=== PATIENT | male | born 1950 | race Caucasian/White ===

== ENCOUNTER → 2016-03-19 | Outpatient (CLI) | payer OTHER ==
[~2016-03-19] MED LIST: /AMLO25TA PO; /GLIP10TAB PO; /PRAV20TA PO; /TAMS4CA PO; ACET50TA PO; ASPI325T5 PO; BACT800T5 PO; BACTDSTA PO; CINN500C9 PO; DOXAZOSIN PO; JANU100T PO; LIDOCAINE 2% MDV 20 ML VIAL As Ordered ONE; LIDOCAINE 4% CREAM 5GM (LMX4) As Ordered ONE; METF1000 PO; PERCOCET PO; PROSCAR PO; SODIUM TETRADECYL SULFATE(3%)30MG/ML 2ML VIAL (SOTRADECOL) As Ordered ONE; TYLE325T5 PO; ZEST20TA8 PO; aspirin OR
--- NOTE | 2016-03-19 17:49 | REPKIM ---
INDICATION: Patient with symptomatic left lower extremity varicose veins and other complications present for left lower extremity EVLT of the incompetent aaGSV and sclerotherapy of significant varicosities and incompetent perforators in the thigh and calf. Ultrasound reflux evaluation showed severe reflux in the anterior accessory greater saphenous vein. Duplex reflux study also showed significant varicosities associated with incompetent perforators with significant reflux at the medial mid thigh and mid calf level. Reflux of 5.2 seconds was observed in the anterior accessory greater saphenous vein. The aa GSV measures 7.5 mm in AP dimension with relatively straight segment to the proximal thigh which then gives off tributaries. Reflux greater than 0.5 seconds in induration is seen in the deep veins. Patient has failed conservative treatment; c/o persistent symptoms that are refractory more than a 3 month course of conservative therapy; utilization of compressive stockings and leg elevation. PROCEDURE: 1. Endovenous laser ablation therapy of the incompetent GSV on the left 2. Sclerotherapy of incompetent crew chief and varicosities in the mid to distal thigh on the left. 3. Sclerotherapy of the incompetent crew chief and varicosities in the mid calf level on the left. INTERVENTIONALIST: Maria Luz Molina MD EBL: 5 mL MEDICATIONS: Local Lidocaine and Sodium Tetradecyl Sulfate 3% diluted to 1.5% DEVICE USED: 25-CM VenaCure EVLT [facility] Lot#[id number] TECHNIQUE AND FINDINGS: Informed consent was obtained prior to the procedure. The patient was placed supine on the table. A time out was performed that verified correct procedure, site, side and materials available. Ultrasound examination was performed and focused on the saphenofemoral junction of the left leg. This confirmed significant reflux involving the anterior accessory greater saphenous vein as previously described. This also showed significant reflux involving the aaGSV with significant varicosities tributaries into the thigh. US also localized incompetent perforators and significant varicosities at the medial thigh and calf level. The left lower extremity was prepped and draped in the usual sterile fashion. After local anesthesia with 1mL of lidocaine 1% at the skin, the incompetent aa greater saphenous vein at the proximal thigh level was accessed with a 21 gauge needle and a 0.018" wire followed by a 4 Hungarian sheath of the EVLT kit. The sheath was advanced over the wire to the saphenofemoral junction level and the laser fiber was advanced coaxially and its tip was positioned approximately 3-4 cm distal from the saphenofemoral junction. Tumescent anesthesia was given along this vein by using real-time ultrasonographic guidance and a 22 gauge spinal needle and a mixture of diluted lidocaine (12.5mL @ 2% in 237.5mL of normal saline). Endovenous laser ablation was applied along the greater saphenous vein using 6 Kumar in continuous mode for a total duration of 22 seconds. A total of 131 Joules was delivered. Approximately 2 mL of sclerotherapy foam (1mL sodium tetradecyl sulfate diluted at 1.5 %) mixed with air at a ratio of 1:4 injected via the sheath to treat tributaries.. Significant varicosities/incompetent crew chief at the medial mid thigh level was then accessed with a micropuncture needle. A microcatheter was then placed over a guidewire. Approximately 2 mL of sclerotherapy foam (1mL sodium tetradecyl sulfate diluted at 1.5 %) mixed with air at a ratio of 1:4 injected. Compression was maintained at the crew chief to prevent non-target sclerosis. Significant tortuous varicosities associated with incompetent crew chief at the mid calf level was then accessed with a micropuncture needle. Approximately 2 mL of sclerotherapy foam (1mL sodium tetradecyl sulfate diluted at 1.5 %) mixed with air at a ratio of 1:4 injected. Compression was maintained at the crew chief to prevent non-target sclerosis. SteriStrips was applied on the skin, followed by 20-30 mm Hg compression stockings. The patient was then allowed to stand and instructed to walk for 15 minutes. He was then discharged back home in good and stable condition with no immediate complication. This procedure was performed with ultrasound guidance. Dr. Molina was present. IMPRESSION: 1. Left lower extremity symptomatic varicose veins and other complications. 2. Successful treatment of symptomatic incompetent aaGSV in the left lower extremity by endovenous laser ablation. 3. Significant varicosities associated with incompetent perforators in the medial thigh and mid calf level also treated with sclerotherapy as discussed above. PLAN: Pt was given post-procedure instructions, including contact information for a follow-up duplex ultrasound of the left lower extremity to rule out DVT and post EVLT/sclerotherapy evaluation in next several days. Patient will need compression stockings for long-term due to incompetent deep system. cc: Ruddy Dugan MD [facility]
== END | disposition home or self-care (01) ==
LOC: M IRPRO 08:15
DX: I83.812 Varicose veins of left lower extremity with pain (principal); I83.892 Varicose veins of left lower extremity with other complications
CPT/HCPCS: 36471; 36478; C1888; C1894

== ENCOUNTER → 2016-03-21 | Outpatient (CLI) | payer OTHER ==
[~2016-03-21] MED LIST changes: -LIDOCAINE 2% MDV 20 ML VIAL As Ordered ONE; -LIDOCAINE 4% CREAM 5GM (LMX4) As Ordered ONE; -SODIUM TETRADECYL SULFATE(3%)30MG/ML 2ML VIAL (SOTRADECOL) As Ordered ONE
--- NOTE | 2016-03-21 12:09 | REP ---
Left lower extremity deep vein duplex ultrasound: I note that the patient underwent and intravenous laser ablation therapy for an incompetent left greater saphenous vein on 03/19/2016. Deep vein duplex ultrasound performed from the left popliteal vein to the common femoral vein. The deep veins demonstrate normal compression, normal Doppler color flow and normal Doppler waveforms with respiration and augmentation at multiple levels. There is no evidence of deep vein thrombus. Thrombus is noted in multiple collateral veins, as expected, post Intravenous laser therapy. Signed by Lino Cohen MD 03/21/2016 12:01 P
== END ==
LOC: M RAD 10:49
DX: I83.009 Varicose veins of unspecified lower extremity with ulcer of unspecified site (principal)

== ENCOUNTER → 2016-05-16 | Outpatient (CLI) | payer OTHER ==
[2016-05-16 09:59] LABS: BASO % 0.9 % (0.0-1.0); EOS # 0.5 K/mm3 (0.0-0.50); EOS % 8.2 % (0.0-3.0); LARGE UNSTAINED CELL # 0.2 K/mm3 (0.0-0.4); LARGE UNSTAINED CELL % 2.4 % (0.0-4.0); LYMPH # 1.8 K/mm3 (1.5-4.5); LYMPH % 26.8 % (24.0-44.0); MEAN CORPUSCULAR HGB CONC 33.2 g/dl (32.0-36.5); MEAN CORPUSCULAR VOLUME 87.3 fl (80.0-96.0); MONO # 0.4 K/mm3 (0.0-0.8); MONO % 5.7 % (0.0-5.0); NEUTROPHILS # 3.5 K/mm3 (1.8-7.7); NEUTROPHILS % 56.1 % (36.0-66.0); PLATELET COUNT, AUTOMATED 194 k/mm3 (150-450); RED CELL DISTRIBUTION WIDTH 13.9 % (11.5-14.5); WHITE BLOOD COUNT 6.2 K/mm3 (4.0-10.0)
[2016-05-16 10:10] LABS: ALBUMIN 3.7 GM/DL (3.2-5.2); ALBUMIN/GLOBULIN RATIO 1.19 (1.00-1.93); ALKALINE PHOSPHATASE 48 U/L (45-117); ALT/SGPT 22 U/L (12-78); ANION GAP 6 MEQ/L (8-16); AST/SGOT 10 U/L (15-37); BILIRUBIN,TOTAL 0.6 MG/DL (0.2-1.0); BLOOD UREA NITROGEN 19 MG/DL (7-18); CALCIUM LEVEL 8.6 MG/DL (8.8-10.2); CARBON DIOXIDE LEVEL 31 MEQ/L (21-32); CHLORIDE LEVEL 108 MEQ/L (98-107); CHOLESTEROL LEVEL 167 MG/DL (<200); CREATININE FOR GFR 0.91 MG/DL (0.70-1.30); GLOMERULAR FILTRATION RATE > 60.0 (>49); GLUCOSE, FASTING 68 MG/DL (80-110); POTASSIUM SERUM 4.9 MEQ/L (3.5-5.1); SODIUM LEVEL 145 MEQ/L (136-145); TOTAL PROTEIN 6.8 GM/DL (6.4-8.2); TRIGLYCERIDES LEVEL 86 MG/DL (<150)
== END ==
LOC: M SMT 08:01
PROVIDERS: ATTEND Family Medicine
DX: E11.9 Type 2 diabetes mellitus without complications (principal)

== ENCOUNTER → 2016-06-05 | Outpatient (CLI) | payer OTHER | LOC: M SMT 08:50 | PROVIDERS: ATTEND Urology | DX: N40.0 Benign prostatic hyperplasia without lower urinary tract symptoms (principal); Z12.5 Encounter for screening for malignant neoplasm of prostate ==

== ENCOUNTER → 2017-06-04 | Outpatient (CLI) | payer OTHER, MEDICARE ==
[2017-06-04 13:47] LABS: BASO # 0.1 10^3/uL (0.0-0.2); BASO % 0.9 % (0.0-1.0); EOS # 0.4 10^3/uL (0.0-0.50); EOS % 6.6 % (0.0-3.0); HEMATOCRIT 51.1 % (42.0-52.0); IMMATURE GRANULOCYTE % 0.3 % (0-3.0); LYMPH # 1.6 10^3/uL (1.5-4.5); LYMPH % 23.7 % (24.0-44.0); MEAN CORPUSCULAR HEMOGLOBIN 27.4 pg (27.0-33.0); MEAN CORPUSCULAR HGB CONC 31.3 g/dl (32.0-36.5); MEAN CORPUSCULAR VOLUME 87.7 fl (80.0-96.0); MONO # 0.5 10^3/uL (0.0-0.8); NEUTROPHILS % 61.5 % (36.0-66.0); PLATELET COUNT, AUTOMATED 247 10^3/uL (150-450); RED BLOOD COUNT 5.83 10^6/uL (4.30-6.10); RED CELL DISTRIBUTION WIDTH 15.8 % (11.5-14.5); WHITE BLOOD COUNT 6.5 10^3/uL (4.0-10.0)
[2017-06-04 14:01] LABS: ALBUMIN 3.9 GM/DL (3.2-5.2); ALBUMIN/GLOBULIN RATIO 0.98 (1.00-1.93); ALKALINE PHOSPHATASE 50 U/L (45-117); ALT/SGPT 26 U/L (12-78); ANION GAP 4 MEQ/L (8-16); AST/SGOT 13 U/L (7-37); BILIRUBIN,TOTAL 0.8 MG/DL (0.2-1.0); BLOOD UREA NITROGEN 22 MG/DL (7-18); CALCIUM LEVEL 9.3 MG/DL (8.8-10.2); CARBON DIOXIDE LEVEL 31 MEQ/L (21-32); CHLORIDE LEVEL 106 MEQ/L (98-107); CHOLESTEROL LEVEL 191 MG/DL (<200); CHOLESTEROL RISK RATIO 4.441 (<5); CREATININE FOR GFR 0.95 MG/DL (0.70-1.30); GLOMERULAR FILTRATION RATE > 60.0 (>49); GLUCOSE, FASTING 109 MG/DL (70-100); HDL CHOLESTEROL 43 MG/DL (>40); LDL CHOLESTEROL 124.4 MG/DL (<100); NON-HDL-C 148 MG/DL; SODIUM LEVEL 141 MEQ/L (136-145); TOTAL PROTEIN 7.9 GM/DL (6.4-8.2); TRIGLYCERIDES LEVEL 118 MG/DL (<150)
[2017-06-04 14:06] LABS: POTASSIUM SERUM 5.6 MEQ/L (3.5-5.1)
[2017-06-04 14:26] LABS: CREATININE, URINE 80.6 MG/DL
[2017-06-04 14:56] LABS: ESTIMATED AVERAGE GLUCOSE 146 MG/DL (60-110); HEMOGLOBIN A1c 6.7 %
== END ==
LOC: M SMT 08:36
DX: E11.9 Type 2 diabetes mellitus without complications (principal)
CPT/HCPCS: 80053

== ENCOUNTER → 2017-06-19 | Outpatient (CLI) | payer OTHER, MEDICARE | LOC: M RAD 09:37 | DX: Z12.2 Encounter for screening for malignant neoplasm of respiratory organs (principal); Z87.891 Personal history of nicotine dependence | CPT/HCPCS: G0297 ==

== ENCOUNTER 2017-09-07 09:41 | Day surgery (SDC) | payer OTHER ==
[2017-09-07] MEDS: NS 1,000 ML IV (10:39)
[2017-09-07] MEDS ORDERED: LIDOCAINE 2% INJ 100 MG/5 ML SDV (FOR ANES.) As Ordered (11:51)
[2017-09-07] MEDS ORDERED: PROPOFOL 500 MG/50 ML VIAL As Ordered (11:51)
== END 2017-09-07 12:31 | disposition home or self-care (01) ==
LOC: M OPP 09:41
DX: Z12.11 Encounter for screening for malignant neoplasm of colon (principal); D12.5 Benign neoplasm of sigmoid colon; K64.0 First degree hemorrhoids; K57.30 Diverticulosis of large intestine without perforation or abscess without bleeding; I10 Essential (primary) hypertension; Z95.5 Presence of coronary angioplasty implant and graft; I25.2 Old myocardial infarction; E78.5 Hyperlipidemia, unspecified; E11.9 Type 2 diabetes mellitus without complications; N40.1 Benign prostatic hyperplasia with lower urinary tract symptoms; Z87.891 Personal history of nicotine dependence; Z88.0 Allergy status to penicillin; Z88.1 Allergy status to other antibiotic agents; Z88.3 Allergy status to other anti-infective agents; Z79.82 Long term (current) use of aspirin; Z79.84 Long term (current) use of oral hypoglycemic drugs; Z79.899 Other long term (current) drug therapy
CPT/HCPCS: 45385

== ENCOUNTER → 2018-12-08 | Outpatient (CLI) | payer OTHER ==
[~2018-12-08] MED LIST changes: -/AMLO25TA PO; -/PRAV20TA PO; -/TAMS4CA PO; -ACET50TA PO; +ASPI81TA26 PO; -BACTDSTA PO; +FLOM0.4C39 PO; +INVO100T; +MAPA500T17 PO; +NORV2TAB PO; +OXYC1TAB23 PO; -PERCOCET PO; +PRAV1TAB39 PO; +SULF1TAB23 PO
[2018-12-08 11:08] LABS: ALT/SGPT 26 U/L (12-78); BILIRUBIN,TOTAL 0.9 MG/DL (0.2-1.0); BLOOD UREA NITROGEN 24 MG/DL (7-18); CALCIUM LEVEL 8.9 MG/DL (8.8-10.2); CARBON DIOXIDE LEVEL 33 MEQ/L (21-32); CHLORIDE LEVEL 104 MEQ/L (98-107); CHOLESTEROL LEVEL 196 MG/DL (<200); CHOLESTEROL RISK RATIO 5.025 (<5); CREATININE FOR GFR 0.99 MG/DL (0.70-1.30); GLOMERULAR FILTRATION RATE > 60.0 (>49); GLUCOSE, FASTING 144 MG/DL (70-100); HDL CHOLESTEROL 39 MG/DL (>40); LDL CHOLESTEROL 129 MG/DL (<100); NON-HDL-C 157 MG/DL; POTASSIUM SERUM 4.7 MEQ/L (3.5-5.1); PROSTATIC SPECIFIC AG MONITOR 2.72 NG/ML (< 4.00); SODIUM LEVEL 141 MEQ/L (136-145); TOTAL PROTEIN 7.6 GM/DL (6.4-8.2); TRIGLYCERIDES LEVEL 142 MG/DL (<150)
[2018-12-08 11:14] LABS: CREATININE, URINE 85.3 MG/DL; HEMATOCRIT 52.3 % (42.0-52.0); HEMOGLOBIN 16.2 g/dl (13.5-17.5); MALB URINE SIEMENS 72.6 MG/L; MAU/CREAT RATIO 85.1 MCG/MG (0.0-30.0); MEAN CORPUSCULAR HEMOGLOBIN 27.9 pg (27.0-33.0); MEAN CORPUSCULAR VOLUME 90.2 fl (80.0-96.0); PLATELET COUNT, AUTOMATED 199 10^3/uL (150-450); WHITE BLOOD COUNT 6.2 10^3/uL (4.0-10.0)
== END ==
LOC: M SMT 08:14
PROVIDERS: ATTEND Family Medicine
DX: E11.9 Type 2 diabetes mellitus without complications (principal); N40.1 Benign prostatic hyperplasia with lower urinary tract symptoms

== ENCOUNTER → 2018-12-21 | Outpatient (CLI) | payer OTHER ==
--- NOTE | 2018-12-22 04:55 | REP ---
Clinical: Lung screening. History smoking. Comparison: 06/19/2017 the the the the Technique: Axial low-dose noncontrast images from the thoracic inlet to the upper abdomen using lung screening technique. Findings: The lung diaz are well-aerated. Minimal chronic scarring primarily noted at the lingula and right base again identified. No consolidation, significant nodule or mass lesion is appreciated. No pleural effusion/reaction or pneumothorax. Tracheobronchial tree is patent. Mediastinum demonstrates atherosclerotic changes of the coronary arteries without cardiomegaly. Impression: Lung-RADS category I. No nodule or suspicious abnormality. Management recommendations include annual low-dose CT evaluation. Electronically Signed by Jacob Mulligan MD 12/22/2018 04:46 A
== END ==
LOC: M RAD 07:59
PROVIDERS: ATTEND Family Medicine
DX: Z12.2 Encounter for screening for malignant neoplasm of respiratory organs (principal); Z87.891 Personal history of nicotine dependence

== ENCOUNTER → 2019-11-17 | Outpatient (CLI) | payer OTHER ==
[2019-11-17 11:08] LABS: HEMATOCRIT 55.4 % (42.0-52.0); HEMOGLOBIN 17.2 g/dl (13.5-17.5); MEAN CORPUSCULAR HEMOGLOBIN 28.2 pg (27.0-33.0); MEAN CORPUSCULAR VOLUME 90.7 fl (80.0-96.0); PLATELET COUNT, AUTOMATED 210 10^3/uL (150-450); RED BLOOD COUNT 6.11 10^6/uL (4.30-6.10); WHITE BLOOD COUNT 7.6 10^3/uL (4.0-10.0)
[2019-11-17 11:46] LABS: ALBUMIN 3.8 GM/DL (3.2-5.2); ALT/SGPT 27 U/L (12-78); BILIRUBIN,TOTAL 1.1 MG/DL (0.2-1.0); BLOOD UREA NITROGEN 20 MG/DL (7-18); CALCIUM LEVEL 8.9 MG/DL (8.8-10.2); CARBON DIOXIDE LEVEL 34 MEQ/L (21-32); CHLORIDE LEVEL 102 MEQ/L (98-107); CREATININE FOR GFR 0.94 MG/DL (0.70-1.30); GLOMERULAR FILTRATION RATE > 60.0 (>42); GLUCOSE, FASTING 131 MG/DL (70-100); POTASSIUM SERUM 4.5 MEQ/L (3.5-5.1); SODIUM LEVEL 139 MEQ/L (136-145); TOTAL PROTEIN 7.3 GM/DL (6.4-8.2)
[2019-11-17 12:07] LABS: MAU/CREAT RATIO 553.3 MCG/MG (0.0-30.0)
[2019-11-17 12:35] LABS: HEMOGLOBIN A1c 7.2 %
== END ==
LOC: M PLALAB 08:28
PROVIDERS: ATTEND Family Medicine
DX: E11.9 Type 2 diabetes mellitus without complications (principal); N40.1 Benign prostatic hyperplasia with lower urinary tract symptoms; Z79.84 Long term (current) use of oral hypoglycemic drugs
CPT/HCPCS: 36415; 80053; 82043; 83036; 85027; G0103

== ENCOUNTER → 2019-12-23 | Outpatient (CLI) | payer OTHER ==
--- NOTE | 2019-12-23 08:53 | REP ---
INDICATION: ENCOUNTER FOR SCREENING FOR MALIGNANT NEOPLASM OF RESP ORGAN. COMPARISON: 12/21/2018, 06/19/2017 TECHNIQUE: Low-dose lung screening CT protocol FINDINGS: Of the lung diaz are well inflated. In the posterolateral aspect of the right upper lobe there is now a 17 x 9.5 mm nodule with lobulated irregular margins. No associated calcifications. There is a 6 mm semi solid nodule image 46 anteriorly in the right upper lobe just above the minor fissure. Some curvilinear subsegmental atelectatic changes are noted in the inferior lingular segment at the anterior left lung base unchanged. Left lower lobe and remainder of the upper lobe were unremarkable. Heart is not grossly enlarged. The aorta is calcified at the arch without aneurysm. There are mediastinal nodes in the 7-8 mm range in the precarinal and AP window region, not definitely pathologic by CT size criteria. IMPRESSION: Lung-RADS category 4B suspicious, suspicious findings for which additional diagnostic testing and/or tissue sampling recommended. I recommend a CT with contrast to be performed as a next step. Malignancy may reasonably be suspected but further evaluation certainly needed. <Electronically signed by Marvin Zhu > 12/23/19 0849
== END ==
LOC: M RAD 07:14
PROVIDERS: ATTEND Family Medicine
DX: Z12.2 Encounter for screening for malignant neoplasm of respiratory organs (principal); Z87.891 Personal history of nicotine dependence; R91.8 Other nonspecific abnormal finding of lung field; J98.11 Atelectasis; I70.0 Atherosclerosis of aorta

== ENCOUNTER → 2019-12-29 | Outpatient (CLI) | payer OTHER ==
[~2019-12-29] MED LIST changes: +ISOVUE-370 76% 100ML VIAL As Ordered ONE
--- NOTE | 2019-12-29 10:06 | REP ---
INDICATION: NEOPLASM OF UNCERTAIN BEHAVIOR COMPARISON: 12/23/2019 through 06/19/2017 TECHNIQUE: Axial contrast enhanced images from the thoracic inlet to the upper abdomen with coronal and sagittal reformations using 75 ml Isovue 370 intravenous contrast material. This CT examination was performed using the following dose reduction techniques: Automated exposure control, adjustment of mA and/or kv according to the patient's size, and use of iterative reconstruction technique. FINDINGS: 15 x 9 mm nodular lesion in the posterolateral right upper lobe is consistent with the new finding on 12/23/2019. 6 mm semi-solid nodular density just above the minor fissure (image 47) is again noted and similar to prior examinations. Chronic interstitial changes and minimal scarring noted throughout the bilateral lung diaz. No effusion. Tracheobronchial tree is patent. Mediastinal and right hilar lymph nodes measure up to approximately 12 mm short axis diameter. Atherosclerotic changes to the thoracic aorta and coronary arteries noted without aortic aneurysm/dissection or cardiomegaly. No pericardial effusion. Surrounding musculoskeletal structures are intact. Limited upper abdomen demonstrates normal bilateral adrenal glands. IMPRESSION: 1. The 15 x 9 mm nodular lesion identified in the posterior right upper lobe consistent with the recent finding on 12/23/2019. PET-CT and/or biopsy should be considered for further investigation. 2. 6 mm semi-solid nodular density in the right upper lobe just above the minor fissure is relatively similar to prior examinations. <Electronically signed by Jacob Mulligan > 12/29/19 9435
== END ==
LOC: M RAD 08:34
PROVIDERS: ATTEND Family Medicine
DX: D38.1 Neoplasm of uncertain behavior of trachea, bronchus and lung (principal)
CPT/HCPCS: 71260; Q9967

== ENCOUNTER → 2020-01-31 | Outpatient (CLI) | payer OTHER ==
[~2020-01-31] MED LIST changes: -ISOVUE-370 76% 100ML VIAL As Ordered ONE
--- NOTE | 2020-02-03 10:38 | REP ---
INDICATION: FIAGNOSING LUNG NODULE R91.1. Solitary pulmonary nodule. COMPARISON: Comparison CT study of the chest December 29, 2019.. TECHNIQUE: Approximately 45 minutes following the intravenous injection of a 8.62 mCi dose of F-18 FDG, three-dimensional PET scintigraphy is acquired from the skull base to the proximal thighs. Triplanar noncontrast CT scanning is acquired through the same anatomic range for attenuation correction, and image registration with scan parameters optimized to minimize radiation exposure to the patient. PET scintigraphy and CT datasets were fused and displayed on a workstation with multiplanar and projection display capability. FINDINGS: There is visible FDG uptake within the spiculated nodule in the right upper lobe. However, it is not in the hypermetabolic range. Maximum standard uptake value is 2.13. There is no abnormal hilar or mediastinal jody uptake in the chest. The anterior segment right upper lobe 6 mm nodule seen on recent CT study is again noted. There is no visible FDG accumulation within this small nodular area. No other abnormal hypermetabolic uptake is seen within the chest. Head and neck soft tissues are unremarkable. In the abdomen and pelvis, there is normal distribution of FDG to the liver, spleen, gastrointestinal, and genitourinary tract systems. No abnormal hypermetabolic uptake is seen in the abdomen or pelvis. Scan is otherwise unremarkable. IMPRESSION: There is discernible although non hypermetabolic uptake in the suspicious spiculated nodule in the right upper lobe. Low-grade malignancy is not excluded. No other abnormal hypermetabolic uptake is seen. There is no visible uptake in the 2nd right upper lobe nodule. <Electronically signed by Rogelio Feliciano > 02/03/20 1037
== END ==
LOC: M PLARAD 07:34
PROVIDERS: ATTEND Internal Medicine Pulmonary Disease
DX: R91.1 Solitary pulmonary nodule (principal)

== ENCOUNTER → 2020-03-19 | Outpatient (CLI) | payer OTHER ==
--- NOTE | 2020-03-19 13:12 | REP ---
INDICATION: SOB COMPARISON: 02/25/2012 TECHNIQUE: PA and lateral. FINDINGS: Mediastinum and cardiac silhouette are normal. Lung diaz demonstrate mild pulmonary vascular congestion along with bibasilar atelectasis and small pleural effusions. No pneumothorax. Skeletal structures are intact. IMPRESSION: Findings suggesting early CHF/pulmonary edema including bibasilar atelectasis and small pleural effusions. Correlation and follow-up recommended. <Electronically signed by Jacob Mulligan > 03/19/20 7584
[2020-03-19 16:38] LABS: BASO % 0.6 % (0.0-1.0); EOS # 0.1 10^3/uL (0.0-0.5); EOS % 1.6 % (0.0-3.0); HEMATOCRIT 52.5 % (42.0-52.0); HEMOGLOBIN 15.6 g/dl (13.5-17.5); LYMPH # 0.9 10^3/uL (1.5-5.0); LYMPH % 12.5 % (24.0-44.0); MEAN CORPUSCULAR HEMOGLOBIN 27.5 pg (27.0-33.0); MEAN CORPUSCULAR HGB CONC 29.7 g/dl (32.0-36.5); MEAN CORPUSCULAR VOLUME 92.6 fl (80.0-96.0); MONO # 0.5 10^3/uL (0.0-0.8); MONO % 7.2 % (0.0-5.0); NEUTROPHILS # 5.4 10^3/uL (1.5-8.5); NEUTROPHILS % 77.8 % (36.0-66.0); PLATELET COUNT, AUTOMATED 230 10^3/uL (150-450); RED BLOOD COUNT 5.67 10^6/uL (4.30-6.10)
[2020-03-19 17:08] LABS: ALBUMIN 3.8 GM/DL (3.2-5.2); ALT/SGPT 51 U/L (12-78); BILIRUBIN,TOTAL 1.7 MG/DL (0.2-1.0); BLOOD UREA NITROGEN 23 MG/DL (7-18); CALCIUM LEVEL 9.3 MG/DL (8.8-10.2); CARBON DIOXIDE LEVEL 28 MEQ/L (21-32); CHLORIDE LEVEL 102 MEQ/L (98-107); CREATININE FOR GFR 1.11 MG/DL (0.70-1.30); GLOMERULAR FILTRATION RATE > 60.0 (>42); GLUCOSE, FASTING 144 MG/DL (70-100); POTASSIUM SERUM 5.1 MEQ/L (3.5-5.1); SODIUM LEVEL 139 MEQ/L (136-145); TOTAL PROTEIN 7.1 GM/DL (6.4-8.2)
== END ==
LOC: M WUC 11:19
PROVIDERS: ATTEND Family Medicine
DX: R91.8 Other nonspecific abnormal finding of lung field (principal); R53.1 Weakness; R06.02 Shortness of breath

== ENCOUNTER 2020-03-22 10:23 | Emergency (ER) | payer OTHER ==
[~2020-03-22] VITALS: Ht 177.8 cm; Wt 83.6 kg
--- OUTSIDE RECORDS SUMMARY | 2020-03-22 10:38 | CCD | Continuity of Care Document ---
Author Author Jan MYLES MD Organization Unknown Address [address] [place] [address] Phone [phone] Care Team Providers Care Road Grader Operator Name Role Phone Ruddy Dugan M.D. AUTM [phone] AUTM Unavailable Leonor Ordonez M.D. AUTM [phone] Problems Description No Information Available Social History Type Date Description Comments Sex Unknown Tobacco Use Start: Unknown End: Former Cigarette Sm oker 2 Packs Daily Smoking Status Reviewed: 01/12/20 Former Cigarette Smoker 2 Pac ks Daily Tobacco Use Start: Unknown End: Unknown Patient is a former smoker Allergies, Adverse Reactions, Alerts Active Allergies Reaction Severity Comments Date Cipro 01/12/2020 Medications Active Medications SIG Qnty Indications Ordering Provide r Date Anoro Ellipta 62.5-25mcg/Inh Aeros ol 1 puff every day 180units Wisam Myles MD 01/12/2020 Arnuity Ellipta 200mcg/Act Aerosol 1 puff every day 90units Wisam Myles MD 01/12/2020 Ventolin HFA 108(90Base) mcg/Act A erosol 2 puffs qid/prn 18gm Wisam Myles MD 01/12/2020 Amlodipine Besylate 5mg Tablets 1 by mouth every day Unknown Invokana 100mg Tablets every day Unknown Glipizide 10mg Tablets 1 tab by mouth twice a day Unknown Metformin HCL 1000mg Tablets 1 tab by mouth twice a day Unknown Pravastatin Sodium 20mg Tablets 1 tab by mouth every day Unknown Immunizations Description No Information Available Vital Signs Date Vital Result Comment 01/12/2020 10:02am BP Systolic 142 mmHg BP Diastolic 80 mmHg Heart Rate 72 /min O2 % BldC Oximetry 90 % Height 70 inches 5'10" Weight 192.00 lb BMI (Body Mass Index) 27.5 kg/m2 [place] Body Weight 166 lb Weight 87.091 kg BSA (Body Surface Area) 2.05 m2 Results Test Acquired Date Facility Test Result H/L Range Note FVL/[place] 01/12/2020 [facility] SEE IMAGE FVC-Pred 4.43 L FVC-Pre 2.19 L FVC-%Pred-Pre 49 L FVC-LLN 3.49 L Fev1-Pred 3.26 L Fev1-Pre 1.23 L Fev1-%Pred-Pre 37 L Fev1-LLN 2.47 L Fev6-Pred 4.18 L Fev6-Pre 2.13 L Fev6-%Pred-Pre 51 L Fev6-LLN 3.27 L Wyt6upn-Goez 74 % Kon4wdm-Mgy 56 % Myh8yob-%Pred-Pre 76 % Arg2goa-HVW 64 % Vdz3yit-Abmr 94 % Kub5gzs-Isf 97 % Wlt1vdg-%Pred-Pre 103 % FEFMax-Pred 8.36 L/E/sec FEFMax-Pre 3.28 L/E/sec FEFMax-%Pred-Pre 39 L/E/sec FEFMax-LLN 6.04 L/E/sec Krx8639-Xgbc 2.47 L/E/sec Uge0461-Kqu 0.53 L/E/sec Mnm9282-%Pred-Pre 21 L/E/sec Mcb7932-RMJ 0.87 L/E/sec ExpTime-Pre 6.99 sec Non0qkj4-Owik 78 % Bfi9mhy4-Ond 58 % Jbq8qjl5-%Pred-Pre 74 % Ish4mdk3-SGN 69 % Procedures Date Code Description Status 01/26/2020 76457 Diffusing Capacity Completed 01/26/2020 02439 Plethysmography Determination Sariah ng Volumes & Per Airway Resist Completed 01/26/2020 42332 Maximum Breathing Capacity, Maxi mal Voluntary Ventilation Completed 01/26/2020 53099 Bronchospasm Evaluation Complete d 01/12/2020 64681 Aerosol Or Vapor Inhalations Com pleted 01/12/2020 66485 Spirometry Completed Medical Devices Description No Information Available Encounters Type Date Location Provider Dx Diagnosis Office Visit 01/12/2020 10:00a [facility] Jah Myles MD R91.1 Solitary pulmonary nodule J44.9 Chronic obstructive pulmonar y disease, unspecified Z87.891 Personal history of nicotine dependence Assessments Date Code Description Provider 01/26/2020 R91.1 Solitary pulmonary nodule [facility] 01/12/2020 R91.1 Solitary pulmonary nodule Kristy Myles MD 01/12/2020 J44.9 Chronic obstructive pulmonary di sease, unspecified Wisam Myles MD 01/12/2020 Z87.891 Personal history of nicotine dep endence Wisam Myles MD Plan of Treatment 01/12/2020 - Wisam Myles MD* R91.1 Solitary pulmonary nodule * J44.9 Chronic obstructive pulmonary disease, unspecified * Z87.891 Personal history of nicotine dependence * * New Xrays:* PET CT Skull base to mid thigh, Scheduled: 01/31/20 * Referral:* Leonor Ordonez M.D., Cardiology/Phys/Osteo * Comments:* ~ At t his point, he has an enlarging right upper lobe nodule in a patient with long-standing tobacco use and significant underlying obstructive lung disease. I have spoken at length with Dr. Wilkerson from thoracic surgery, and I believe the best approach really would be operative intervention, if he is able to tolerate it. ~ I reviewed with them the fact that he has significant underlying obstructive lung disease and, currently, his FEV1 is only 1.24L, which would not tolerate a lobectomy. However, he is not on any respiratory medications, and exam today suggests an exacerbation of his underlying lung disease. We will, therefore, start him on Anoro and Arnuity. I will see him in several weeks with the PFT's. We will, also, schedule a PET scan for his nodule.~ He clearly will need cardiology clearance as well, as he has stents in place, and has not been evaluated from that standpoint in some time. ~ I have spoken with Dr. Wilkerson in this regard, and he is in agreement. I will make all those above arrangements. ~ I will see him in return with the above. * Follow up:* PFTs in 2 weeks.....see me with Functional Status Description No Information Available Mental Status Description No Information Available Referrals Refer to Reason for Referral Status Appt Date Radiology/Procedure [facility] approved [id number] Created Leonor Ordonez M.D. Lung mass needs resection....known CAD with stents Created 03/07/2020 [facility], [address] [place] [address] [phone]
--- OUTSIDE RECORDS SUMMARY | 2020-03-22 10:38 | CCD | Continuity of Care Document ---
Author Author Jna NAVARRO M.D. Organization Unknown Address [address] [place] [address] Phone [phone] Care Team Providers Care Box Feeder Name Role Phone Ruddy Dugan M.D. AUTM [phone] AUTM Unavailable Leonor Ordonez M.D. AUTM [phone] Problems Active Problems Provider Date Type 2 diabetes mellitus Hipolito Navarro M.D. Onset: 021 Social History Type Date Description Comments Sex Unknown Tobacco Use Start: Unknown End: Former Cigarette Sm oker 2 Packs Daily Tobacco Use Start: Unknown End: Unknown Patient is a former smoker Smoking Status Reviewed: 02/20/20 Patient is a former smoker Allergies, Adverse [...] Available Vital Signs Date Vital Result Comment 02/20/2020 9:41am BP Systolic 140 mmHg BP Diastolic 70 mmHg Heart Rate 94 /min O2 % BldC Oximetry 90 % Height 70 inches 5'10" Weight 191.00 lb BMI (Body Mass Index) 27.4 kg/m2 [place] Body Weight 166 lb Weight 86.638 kg BSA (Body Surface Area) 2.05 m2 02/02/2020 9:16am BP Systolic 140 mmHg BP Diastolic 62 mmHg Heart Rate 89 /min O2 % BldC Oximetry 91 % Body Temperature 96.0 F Height 70 inches 5'10" Weight 190.00 lb BMI (Body Mass Index) 27.3 kg/m2 [place] Body Weight 166 lb Weight 86.184 kg BSA (Body Surface Area) 2.04 m2 Results Test Acquired Date Facility Test Result H/L Range Note FVL/[place] 01/12/2020 [facility] SEE IMAGE FVC-Pred 4.43 L FVC-Pre 2.19 L FVC-%Pred-Pre 49 L FVC-LLN 3.49 L Fev1-Pred 3.26 L Fev1-Pre 1.23 L Fev1-%Pred-Pre 37 L Fev1-LLN 2.47 L Fev6-Pred 4.18 L Fev6-Pre 2.13 L Fev6-%Pred-Pre 51 L Fev6-LLN 3.27 L Wim5uhj-Wqzh 74 % Ber2zss-Ibf 56 % Oay1ggh-%Pred-Pre 76 % Cpj8uyk-SGS 64 % Gim6nxi-Gtwd 94 % Lek2awr-Rlo 97 % Vmn6lps-%Pred-Pre 103 % FEFMax-Pred 8.36 L/E/sec FEFMax-Pre 3.28 L/E/sec FEFMax-%Pred-Pre 39 L/E/sec FEFMax-LLN 6.04 L/E/sec Zcg9134-Jmse 2.47 L/E/sec Ugb5676-Qnw 0.53 L/E/sec Tjq1900-%Pred-Pre 21 L/E/sec Wwp5790-BZI 0.87 L/E/sec ExpTime-Pre 6.99 sec Imq8vrf0-Ioty 78 % Mut3rmd9-Gub 58 % Iup2xym9-%Pred-Pre 74 % Sev7ivw5-YKI 69 % Procedures Date Code Description Status 01/26/2020 80677 Diffusing Capacity Completed 01/26/2020 26448 Plethysmography Determination Sariah ng Volumes & Per Airway Resist Completed 01/26/2020 11180 Maximum Breathing Capacity, Maxi mal Voluntary Ventilation Completed 01/26/2020 03712 Bronchospasm Evaluation Complete d 01/12/2020 65372 Inhaler Teaching Completed 01/12/2020 24691 Spirometry Completed Medical Devices Description No Information Available Encounters Type Date Location Provider Dx Diagnosis Office Visit 02/02/2020 9:30a [facility] Jah Myles MD R91.1 Solitary pulmonary nodule J44.9 Chronic obstructive pulmonar y disease, unspecified Z87.891 Personal history of nicotine dependence Office Visit 01/12/2020 10:00a [facility] Jah Myles MD R91.1 Solitary pulmonary nodule J44.9 Chronic obstructive pulmonar y disease, unspecified Z87.891 Personal history of nicotine dependence Assessments Date Code Description Provider 02/20/2020 R91.1 Solitary pulmonary nodule Hipolito Navarro M.D. 02/20/2020 J44.9 Chronic obstructive pulmonary di sease, unspecified Hipolito Navarro M.D. 02/20/2020 Z87.891 Personal history of nicotine dep jeradence Hipolito Navarro M.D. 02/20/2020 E11.21 Type 2 diabetes mellitus Hipolito Navarro M.D. 02/20/2020 I10 Essential hypertension Hipolito shukla M.D. 02/20/2020 Z95.5 History of placement of stent fo r coronary artery disease Hipolito Navarro M.D. 02/20/2020 R91.8 Other nonspecific abnormal findi ng of lung field Hipolito Navarro M.D. 02/02/2020 R91.1 Solitary pulmonary nodule Kristy Myles MD 02/02/2020 J44.9 Chronic obstructive pulmonary di sease, unspecified Wisam Myles MD 02/02/2020 Z87.891 Personal history of nicotine dep endence Wisam Myles MD 01/26/2020 R91.1 Solitary pulmonary nodule [facility] 01/12/2020 R91.1 Solitary pulmonary nodule Kristy Myles MD 01/12/2020 J44.9 Chronic obstructive pulmonary di sease, unspecified Wisam Myles MD 01/12/2020 Z87.891 Personal history of nicotine dep endence Wisam Myles MD Plan of Treatment Future Appointment(s):* 06/04/2020 3:15 pm - Wisam Myles MD at [facility]Th[facility]acic 02/20/2020 - Hipolito Navarro M.D.* R91.1 Solitary pulmonary nodule* New Orders: * Thoracoscopy,possible thoracotomy, wedge resection bronch, Ordered: 02/20/20 * Referral:* Leonor Ordonez M.D., Cardiology/Phys/Osteo * Follow up:* Follow up will be scheduled upon discharge from the hospital post operatively. * J44.9 Chronic obstructive pulmonary disease, unspecified * Z87.891 Personal history of nicotine dependence * E11.21 Type 2 diabetes mellitus * I10 Essential hypertension * Z95.5 History of placement of stent for coronary artery disease * R91.8 Other nonspecific abnormal finding of lung field* New Orders:* Thoracoscopy,possible thoracotomy, wedge resection bronch, Ordered: 02/20/20 Functional Status Description No Information Available Mental Status Description No Information Available Referrals Refer to Reason for Referral Status Appt Date Leonor Ordonez M.D. cardiac clearance, known CAD with stents. Planned lobectomy right upper lobe Created [facility], [place] [facility], [address] [id number] [phone] Hipolito Navarro M.D. Resect RUL nodule as we had previously discussed Scheduled 02/20/2020 [facility] [id number] [place] [id number] [phone] Radiology/Procedure [facility] approved [id number] Closed Leonor Ordonez M.D. Lung mass needs resection....known CAD with stents Created 03/07/2020 [facility], [address] [facility] [employer], [address] [id number] [phone]
--- OUTSIDE RECORDS SUMMARY | 2020-03-22 10:38 | CCD | Continuity of Care Document ---
Author Author [facility] Organization Unknown Address [address] [place] [address] Phone [phone] Care Team Providers Care Electronics System Mechanic Name Role Phone Ruddy Dugan M.D. AUTM [phone] AUTM Unavailable Leonor Ordonez M.D. AUTM [phone] Problems Description No Information Available Social History [...] lb BMI (Body Mass Index) 27.5 kg/m2 [place] Body Weight 166 lb Weight 87.091 kg [...] L Fev6-%Pred-Pre 51 L Fev6-LLN 3.27 L Xbk9mij-Udms 74 % Kjq5kts-Rvw 56 % Eez4fmx-%Pred-Pre 76 % Ebm5zju-GGD 64 % Che6blg-Qjho 94 % Rxd9awj-Esu 97 % Uyg0dnx-%Pred-Pre 103 % FEFMax-Pred 8.36 L/E/sec FEFMax-Pre 3.28 L/E/sec FEFMax-%Pred-Pre 39 L/E/sec FEFMax-LLN 6.04 L/E/sec Emy6142-Ioxx 2.47 L/E/sec Awl3567-Zhb 0.53 L/E/sec Fsi6145-%Pred-Pre 21 L/E/sec Sqe4241-ZGV 0.87 L/E/sec ExpTime-Pre 6.99 sec Blb0bwg8-Rhfi 78 % Nwf3naj1-Gtq 58 % Fjd9bib0-%Pred-Pre 74 % Bnr6trs0-NYH 69 % Procedures Date Code Description Status 01/12/2020 35229 Aerosol Or Vapor Inhalations Com pleted 01/12/2020 33557 Spirometry Completed Medical Devices Description No Information Available Encounters Type Date Location Provider Dx Diagnosis Office Visit 01/12/2020 10:00a [facility] Lawrevelyn Myles MD R91.1 Solitary pulmonary nodule J44.9 Chronic obstructive pulmonar y disease, unspecified Z87.891 Personal history of nicotine dependence Assessments Date Code Description Provider 01/26/2020 R91.1 Solitary pulmonary nodule [facility] 01/12/2020 R91.1 Solitary pulmonary nodule Kristy elvin Myles MD 01/12/2020 J44.9 Chronic obstructive pulmonary di sease, unspecified Wisam Myles MD 01/12/2020 Z87.891 Personal history of nicotine dep endence Wisam Myles MD Plan of Treatment Future Appointment(s):* 02/02/2020 9:30 am - Wisam Myles MD at [facility] Pulmonary/Thoracic 01/12/2020 - Wisam Myles MD* R91.1 Solitary [...] Description No Information Available Referrals Refer to Dr Reason for Referral Status Appt Date Radiology/Procedure [facility] approved [id number] [facility] 00 Slezka, Vojtech, M.D. Lung mass needs resection....known CAD with stents Created 03/07/2020 [facility], [facility] [facility], [place] [address] [phone]
--- OUTSIDE RECORDS SUMMARY | 2020-03-22 10:39 | CCD ---
Author Author [facility] Organization [facility] Address Unknown Phone Unavailable Care Team Providers Care Food Products Tester Name Role Phone Drew Myles MD Unavailable Unavailable Drew Myles MD Unavailable Unavailable Drew Myles MD Unavailable Unavailable Drew Myles MD Unavailable Unavailable Drew Myles MD Unavailable Unavailable Drew Myles MD Unavailable Unavailable Drew Myles MD Unavailable Unavailable Drew Myles MD Unavailable Unavailable Drew Myles MD Unavailable Unavailable Drew Myles MD Unavailable Unavailable Drew Myles MD Unavailable Unavailable Drew Myles MD Unavailable Unavailable Drew Myles MD Unavailable Unavailable Drew Myles MD Unavailable Unavailable Drew Myles MD Unavailable Unavailable Drew Myles MD Unavailable Unavailable Drew Myles MD Unavailable Unavailable Drew Myles MD Unavailable Unavailable Drew Myles MD Unavailable Unavailable Drew Myles MD Unavailable Unavailable Drew Myles MD Unavailable Unavailable Drew Myles MD Unavailable Unavailable Drew Myles MD Unavailable Unavailable Drew Myles MD Unavailable Unavailable Drew Myles MD Unavailable Unavailable Drew Myles MD Unavailable Unavailable Drew Myles MD Unavailable Unavailable Drew Myles MD Unavailable Unavailable Drew Myles MD Unavailable Unavailable Drew Myles MD Unavailable Unavailable Drew Myles MD Unavailable Unavailable Drew Myles MD Unavailable Unavailable Drew Myles MD Unavailable Unavailable Drew Myles MD Unavailable Unavailable Drew Myles MD Unavailable Unavailable Drew Myles MD Unavailable Unavailable Drew Myles MD Unavailable Unavailable Drew Myles MD Unavailable Unavailable Drew Myles MD Unavailable Unavailable Drew Myles MD Unavailable Unavailable Drew Myles MD Unavailable Unavailable Drew Myles MD Unavailable Unavailable Drew Myles MD Unavailable Unavailable Drew Myles MD Unavailable Unavailable Drew Myles MD Unavailable Unavailable Drew Myles MD Unavailable Unavailable Drew Myles MD Unavailable Unavailable Drew Myles MD Unavailable Unavailable Drew Myles MD Unavailable Unavailable Drew Myles MD Unavailable Unavailable Drew Myles MD Unavailable Unavailable Leonor Ordonez MD Unavailable Unavailable Leonor Ordonez MD Unavailable Unavailable Leonor Ordonez MD Unavailable Unavailable Leonor Ordonez MD Unavailable Unavailable Leonor Ordonez MD Unavailable Unavailable Leonor Ordonez MD Unavailable Unavailable Leonor Ordonez MD Unavailable Unavailable Leonor Ordonez MD Unavailable Unavailable Leonor Ordonez MD Unavailable Unavailable Leonor Ordonez MD Unavailable Unavailable Loenor Ordonez MD Unavailable Unavailable Leonor Ordonez MD Unavailable Unavailable Leonor Ordonez MD Unavailable Unavailable Leonor Ordonez MD Unavailable Unavailable Leonor Ordonez MD Unavailable Unavailable Leonor Ordonez MD Unavailable Unavailable Leonor Ordonez MD Unavailable Unavailable Leonor Ordonez MD Unavailable Unavailable Leonor Ordonez MD Unavailable Unavailable Leonor Ordonez MD Unavailable Unavailable Leonor Ordonez MD Unavailable Unavailable Leonor Ordonez MD Unavailable Unavailable Leonor Ordonez MD Unavailable Unavailable Leonor Ordonez MD Unavailable Unavailable Leonor Ordonez MD Unavailable Unavailable Leonor Ordonez MD Unavailable Unavailable Leonor Ordonez MD Unavailable Unavailable Leonor Ordonez MD Unavailable Unavailable Leonor Ordonez MD Unavailable Unavailable Leonor Ordonez MD Unavailable Unavailable Leonor Ordonez MD Unavailable Unavailable Leonor Ordonez MD Unavailable Unavailable Leonor Ordonez MD Unavailable Unavailable Leonro Ordonez MD Unavailable Unavailable Leonor Ordonez MD Unavailable Unavailable Leonor Ordonez MD Unavailable Unavailable Leonor Ordonez MD Unavailable Unavailable Leonor Ordonez MD Unavailable Unavailable Leonor Ordonez MD Unavailable Unavailable Leonor Ordonez MD Unavailable Unavailable Leonor Ordonez MD Unavailable Unavailable Leonor Ordonez MD Unavailable Unavailable Leonor Ordonez MD Unavailable Unavailable Leonor Ordonez MD Unavailable Unavailable Leonor Ordonez MD Unavailable Unavailable Leonor Ordonez MD Unavailable Unavailable Leonor Ordonez MD Unavailable Unavailable Leonor Ordonez MD Unavailable Unavailable Leonor Ordonez MD Unavailable Unavailable Leonor Ordonez MD Unavailable Unavailable Leonor Ordonez MD Unavailable Unavailable SleLeonor pierce MD Unavailable Unavailable Leonor Ordonez MD Unavailable Unavailable Leonor Ordonez MD Unavailable Unavailable Leonor Ordonez MD Unavailable Unavailable Leonor Ordonez MD Unavailable Unavailable Leonor Orodnez MD Unavailable Unavailable Leonor Ordonez MD Unavailable Unavailable Myles, Drew Joel MD Unavailable Unavailable Myles, Drew Joel MD Unavailable Unavailable Myles, Drew Joel MD Unavailable Unavailable Myles, Drew Joel MD Unavailable Unavailable Myles, Drew Joel MD Unavailable Unavailable Myles, Drew Joel MD Unavailable Unavailable Myles, Drew Joel MD Unavailable Unavailable Myles, Drew Joel MD Unavailable Unavailable Myles, Drew Joel MD Unavailable Unavailable Myles, Drew Joel MD Unavailable Unavailable Myles, Drew Joel MD Unavailable Unavailable Myles, Drew Joel MD Unavailable Unavailable Myles, Drew Joel MD Unavailable Unavailable Myles, Drew Joel MD Unavailable Unavailable Myles, Drew Joel MD Unavailable Unavailable Myles, Drew Joel MD Unavailable Unavailable Myles, Drew Joel MD Unavailable Unavailable Myles, Drew Joel MD Unavailable Unavailable Myles, Drew Joel MD Unavailable Unavailable Myles, Drew Joel MD Unavailable Unavailable Myles, Drew Joel MD Unavailable Unavailable Myles, Drew Joel MD Unavailable Unavailable Myles, Drew Joel MD Unavailable Unavailable Myles, Drew Joel MD Unavailable Unavailable Mlyes, Drew Joel MD Unavailable Unavailable Myles, Drew Joel MD Unavailable Unavailable Myles, Drew Joel MD Unavailable Unavailable Myles, Drew Joel MD Unavailable Unavailable MylesDrew MD Unavailable Unavailable Myles, Drew Joel MD Unavailable Unavailable Myles, Drew Joel MD Unavailable Unavailable Myles, Drew Joel MD Unavailable Unavailable Myles, Drew Joel MD Unavailable Unavailable Myels, Drew Joel MD Unavailable Unavailable Myles, Drew Joel MD Unavailable Unavailable Myles, Drew Joel MD Unavailable Unavailable Myles, Drew Joel MD Unavailable Unavailable MylesDrew MD Unavailable Unavailable MylesDrew MD Unavailable Unavailable Myles, Drew Joel MD Unavailable Unavailable Myles, Drew Joel MD Unavailable Unavailable Myles, Drew Joel MD Unavailable Unavailable Myles, Drew Joel MD Unavailable Unavailable Myles, Drew Joel MD Unavailable Unavailable Myles, Drew Joel MD Unavailable Unavailable Myles, Drew Joel MD Unavailable Unavailable Myles, Drew Joel MD Unavailable Unavailable Myles, Drew Joel MD Unavailable Unavailable MylesDrew MD Unavailable Unavailable Myles, Drew Joel MD Unavailable Unavailable Myles, Drew Joel MD Unavailable Unavailable Re-disclosure Warning The records that you are about to access may contain information from federally-assisted alcohol or drug abuse programs. If such information is present, then the following federally mandated warning applies: This information has been disclosed to you from records protected by federal confidentiality rules (42 CFR part 2). The federal rules prohibit you from making any further disclosure of this information unless further disclosure is expressly permitted by the written consent of the person to whom it pertains or as otherwise permitted by 42 CFR part 2. A general authorization for the release of medical or other information is NOT sufficient for this purpose. The Federal rules restrict any use of the information to criminally investigate or prosecute any alcohol or drug abuse patient.The records that you are about to access may contain highly sensitive health information, the redisclosure of which is protected by Article 27-F of the [facility] Public Health law. If you continue you may have access to information: Regarding HIV / AIDS; Provided by facilities licensed or operated by the [facility] Office of Mental Health; or Provided by the [facility] Office for People With Developmental Disabilities. If such information is present, then the following [facility] mandated warning applies: This information has been disclosed to you from confidential records which are protected by state law. State law prohibits you from making any further disclosure of this information without the specific written consent of the person to whom it pertains, or as otherwise permitted by law. Any unauthorized further disclosure in violation of state law may result in a fine or assisted sentence or both. A general authorization for the release of medical or other information is NOT sufficient authorization for further disc losure. Encounters Encounter Providers Location Date Indications Data Source(s ) Outpatient Attender: Leonor ZARATEeferrer: Law jhon [email or web address] 03/07/2020 12:00:00 AM EST - 03/07/2020 10:53:26 AM EST [facility] Outpatient Attender: Wisam Smith/Eric/Zhane munguia 02/02/2020 08:30:00 AM EST [facility] ([facility] Outpatient Attender: Wisam Smith/Eric/Zhane rangelndmartin 01/12/2020 09:00:00 AM EST [facility] ([facility] Medications Medication Brand Name Start Date Product Form Dose Route Admi nistrative Instructions Pharmacy Instructions Status Indications Reaction Description Data Source(s) 10 mg 03/20/2020 12:00:00 AM EST tablet 30 TAKE ONE TABLET BY MOUTH EVERY OTHER DAY TAKE ONE TABLET BY MOUTH EVERY OTHER DAY SOLD: 03/20/[facility] Pred[facility]one 10 MG Oral Tablet predniSONE (DELTASONE) 10 MG tablet predniSONE (DELTASONE) 10 MG tablet 02/27/2020 12:00:00 AM EST active TAKE 4 TABLETS DAILY FOR 4 DAYS THEN 3 DAILY FOR 4 DAYS THEN 2 DAILY FOR 4 DAYS THEN 1 DAILY FOR 4 DAYS THEN STOP [facility] 10 mg 02/27/2020 12:00:00 AM EST tablet 40 TAKE 4 TABLETS DAILY FOR 4 DAYS THEN 3 DAILY FOR 4 DAYS THEN 2 DAILY FOR 4 DAYS THEN 1 DAILY FOR 4 DAYS THEN STOP TAKE 4 TABLETS DAILY FOR 4 DAYS THEN 3 D AILY FOR 4 DAYS THEN 2 DAILY FOR 4 DAYS THEN 1 DAILY FOR 4 DAYS THEN STOP SOLD: 02/27/2020 [facility] canagliflozin 100 MG Oral Tablet [Invokana] INVOKANA 1 00 MG TABS INVOKANA 100 MG TABS 02/14/2020 12:00:00 AM EST 1 {tbl} Oral active Take 1 tablet by mouth daily [facility] Metformin hydrochloride 1000 MG Oral Tab let metFORMIN (GLUCOPHAGE) 1000 MG tablet metFORMIN (GLUCOPHAGE) 1000 MG tablet 01/22/2020 12:00:00 AM EST active [facility] 30 ACTUAT fluticasone furoate 0.2 MG/ACT UAT Dry Powder Inhaler [Arnuity] ARNUITY ELLIPTA 200 MCG/ACT AEPB ARNUITY ELLIPTA 200 MCG/ACT AEPB 01/12/2020 12:00:00 AM EST active [facility] 30 ACTUAT umeclidinium 0.0625 MG/ACTUAT / vilanterol 0.025 MG/ACTUAT Dry Powder Inhaler [Anoro] ANORO ELLIPTA 62.5-25 MCG/INH inhaler ANORO ELLIPTA 62.5-25 MCG/INH inhaler 01/12/2020 12:00:00 AM EST active [facility] 30 ACTUAT fluticasone furoate 0.2 MG/ACTUAT Dry Powder Inhaler [Arnuity] Arnuity Ellipta 01/12/2020 12:00:00 AM EST RESPIRATORY active [facility] ([facility], ) 30 ACTUAT umeclidinium 0.0625 MG/ACTUAT / vilanterol 0.025 MG/ACTUAT Dry Powder Inhaler [Anoro] Anoro Ellipta 01/12/2020 12:00:00 AM EST RESPIRA TORY active [facility] ([facility], ) 200 ACTUAT Albuterol 0.09 MG/ACTUAT Metered Dose Inhal er [Ventolin] Ventolin HFA 01/12/2020 12:00:00 AM EST RESPIRATORY active [facility] ([facility], ) 200 ACTUAT Albuterol 0.09 MG/ACTUAT Mete red Dose Inhaler [Ventolin] VENTOLIN HFA 108 (90 Base) MCG/ACT inhaler VENTOLIN HFA 108 (90 Base) MCG/ACT inhaler 01/12/2020 12:00:00 AM EST active [facility] Glipizide 10 MG Oral Tablet glipiZIDE (GLUCOTROL) 10 M G tablet glipiZIDE (GLUCOTROL) 10 MG tablet 12/31/2019 12:00:00 AM EST active [facility] Amlodipine 5 MG Oral Tablet amLODIPine (NORVASC) 5 MG tablet amLODIPine (NORVASC) 5 MG tablet 12/31/2019 12:00:00 AM EST a ctive [facility] Pravastatin Sodium 20 MG Oral Tablet pravastatin (PRAV ACHOL) 20 MG tablet pravastatin (PRAVACHOL) 20 MG tablet 12/31/2019 12:00:00 AM EST active [facility] Insurance Providers Payer name Policy type / Coverage type Policy ID Covered democrat ID Covered democrat's relationship to lima Policy [place] Plan Information [facility] [id number] CT2 [id number] [facility] [id number] [facility] [id number] [facility] [id number] [facility] [id number] CT2 [id number] [facility] [id number] CT2 [id number] [facility] [id number] CT2 [id number] [facility] [id number] CT2 [id number] MEDICARE [id number] A MEDICARE [id number] SP [id number] A [facility] [id number] [facility] [id number] [facility] [id number] SP [id number] SELF PAY UNAVAILABLE SP UNAVAILA MARLYN [facility]H PHY [id number] Problems, Conditions, and Diagnoses Code Display Name Description Problem Type Effective Dates Data Source(s) I25.10 Coronary artery disease invo lving [place] coronary artery of [place] heart without angina pectoris Coronary artery disease involving [place] coronary artery of [place] heart without angina pectoris [id number] 03/07/2020 12:00:00 AM EST [facility] Z01.810 Preoperative cardiovascular examination Preoperative cardiovascular examination [id number] 03/07/2020 12:00:00 AM EST [facility] [id number] Type 2 diabetes mellitus Type 2 diabetes mellitus Prob bethany 02/19/2020 12:00:00 AM EST [facility] ([facility] ) I25.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 Surgeries/Procedures Procedure Description Date Indications Data Source(s) POCT AMB EKG POCT AMB EKG Routine 03/07/2020 11:10 AM EST Preoperative cardiovascular examination Coronary artery disease involving [place] coronary artery of [place] heart without angina pectoris 03/07/2020 04:10:00 PM EST Coronary jevon ry disease involving [place] coronary artery of [place] heart without angina pectorisPreoperative cardiovascular examination [facility] Coronary artery disease involving [place] coronary artery of [place] heart without angina pectoris Preoperative cardiovascular examination Bronchospasm Evaluation 01/26/2020 12:00:00 AM EST [facility] ([facility]) Maximum Breathing Capacity, Maximal Voluntary Ventilation 01/26/2020 12:00:00 AM EST [facility] ([facility]) Plethysmography Determination Lung Volumes & Per Airway Resi st 01/26/2020 12:00:00 AM EST [facility] DIFFUSING CAPACITY 01/26/2020 12:00:00 AM EST [facility] ([facility]) Spirometry 01/12/2020 12:00:00 AM EST [facility] ([facility]) DEMO&/EVAL OF PT UTILIZ AERSL GEN/NEB/INHLR/IPPB 01/11 12:00:00 AM EST [facility] ([facility]) Results ID Date Data Source [id number] 01/12/2020 09:58:00 AM EST [facility] ([facility]) Name Value Range Interpretation Code Description Data Tootie rce(s) Supporting Document(s) PDFReport Laboratory test result [facility] ([facility]) FVC-Pred 4.43 L [facility] ([facility]) FVC-Pre 2.19 L [facility] ([facility]) FVC-%Pred-Pre 49 L [facility] ([facility]) FVC-LLN 3.49 L [facility] ([facility]) Fev1-Pred 3.26 L [facility] ([facility]) Fev1-Pre 1.23 L [facility] ([facility]) Fev1-%Pred-Pre 37 L [facility] ([facility]) Fev6-Pred 4.18 L [facility] ([facility]) Fev1-LLN 2.47 L [facility] ([facility]) Fev6-Pre 2.13 L [facility] ([facility]) Fev6-%Pred-Pre 51 L [facility] ([facility]) Fev6-LLN 3.27 L [facility] ([facility]) [id number]-Neeq 74 % [facility] ([facility]) Thr8bth-%Pred-Pre 76 % [facility] ([facility]) Ywm6hus-Jzl 56 % [facility] ([facility]) Bob7jga-OSP 64 % [facility] ([facility]) Eqd7qfo-Vanz 94 % [facility] ([facility]) Cbr4wmk-Bwp 97 % [facility] ([facility]) Iwy7ige-%Pred-Pre 103 % [facility] ([facility]) FEFMax-Pred 8.36 L/E/sec [facility] ([facility]) FEFMax-Pre 3.28 L/E/sec [facility] ([facility]) FEFMax-%Pred-Pre 39 L/E/sec [facility] ([facility]) FEFMax-LLN 6.04 L/E/sec [facility] ([facility]) [id number]-Gtoa 2.47 L/E/sec [facility] ([facility]) Nvc3947-Ijo 0.53 L/E/sec [facility] ([facility]) Mkc7730-%Pred-Pre 21 L/E/sec [facility] ([facility]) [id number]-BXW 0.87 L/E/sec [facility] ([facility]) ExpTime-Pre 6.99 sec [facility] ([facility]) [id number]-Zmvq 78 % [facility] ([facility]) [id number]-Swy 58 % [facility] ([facility]) Sgf7orb2-%Pred-Pre 74 % [facility] ([facility]) Rkf7iru2-BQG 69 % [facility] ([facility]) Procedure Social History Code Duration Value Status Description Data Source(s ) Alcohol intake 03/07/2020 12:00:00 AM EST Not Currently completed [facility] Cigarette pack-years 03/07/2020 12:00:00 AM EST UNK completed [facility] Cigarettes smoked current (pack per day) - Reported 03/07/19 12:00:00 AM EST UNK completed [facility] Smoking 03/07/2020 12:00:00 AM EST Former smoker completed Former smoker [facility] Smoking 02/20/2020 12:00:00 AM EST Patient is a former smoker completed [facility] is a [facility]oker [facility] Smoking 01/12/2020 12:00:00 AM EST Former Cigarette Smok er 2 Packs Daily completed Former Cigarette Smoker 2 Packs [facility] Vital Signs ID Date Data Source UNK Name Value Range Interpretation Code Description Data Source(s) Oxygen saturation in Arterial blood by Pulse oximetry 90 % 90 % [facility] Body weight 87.544 kg 87.544 kg [facility] Heart rate 101 /min 101 /min [facility] Diastolic blood pressure 72 mm[Hg] 72 mm[Hg] [facility] Systolic blood pressure 146 mm[Hg] 146 mm[Hg] [facility] Body surface area Derived from formula 2.05 m2 2.05 m2 [facility] ([facility]) Body weight 86.638 kg 86.638 kg [facility] ([facility]) [place] body weight 166 [lb_av] 166 [lb_av] [facility] Body mass index (BMI) [Ratio] 27.4 kg/m2 27.4 k g/m2 [facility] ([facility]) Body weight 191.00 [lb_av] 191.00 [lb_av] [facility] Body height 70 [in_i] 70 [in_i] [facility] ([facility]) 5'10" Oxygen saturation in Arterial blood by Pulse oximetry 90 % 90 % [facility] ([facility]) Heart rate 94 /min 94 /min [facility] ([facility]) Diastolic blood pressure 70 mm[Hg] 70 mm[Hg] [facility] ([facility]) Systolic blood pressure 140 mm[Hg] 140 mm[Hg] [facility] Body surface area Derived from formula 2.04 m2 2.04 m2 [facility] ([facility]) Body weight 86.184 kg 86.184 kg [facility] ([facility]) [place] body weight 166 [lb_av] 166 [lb_av] [facility] ([facility]) Body mass index (BMI) [Ratio] 27.3 kg/m2 27.3 k g/m2 [facility] ([facility]) Body weight 190.00 [lb_av] 190.00 [lb_av] [facility] ([facility]) Body height 70 [in_i] 70 [in_i] [facility] ([facility]) 5'10" Body temperature 96.0 [degF] 96.0 [degF] [facility] ([facility]) Oxygen saturation in Arterial blood by Pulse oximetry 91 % 91 % [facility] ([facility]) Heart rate 89 /min 89 /min [facility] ([facility]) Diastolic blood pressure 62 mm[Hg] 62 mm[Hg] [facility] ([facility]) Systolic blood pressure 140 mm[Hg] 140 mm[Hg] [facility] ([facility]) Body surface area Derived from formula 2.05 m2 2.05 m2 [facility] ([facility]) Body weight 87.091 kg 87.091 kg [facility] ([facility]) [place] body weight 166 [lb_av] 166 [lb_av] [facility] ([facility]) Body mass index (BMI) [Ratio] 27.5 kg/m2 27.5 k g/m2 [facility] ([facility]) Body weight 192.00 [lb_av] 192.00 [lb_av] [facility] ([facility]) Body height 70 [in_i] 70 [in_i] [facility] ([facility]) 5'10" Oxygen saturation in Arterial blood by Pulse oximetry 90 % 90 % [facility] ([facility]) Heart rate 72 /min 72 /min [facility] ([facility]) Diastolic blood pressure 80 mm[Hg] 80 mm[Hg] [facility] ([facility]) Systolic blood pressure 142 mm[Hg] 142 mm[Hg] [facility] ([facility]) Patient Treatment Plan of Care Planned Activity Planned Date Details Description Data Source (s) Prednisone 10 MG Oral Tablet 02/27/2020 12:00:00 AM [facility] canagliflozin 100 MG Oral Tablet [Invokana] 02/14/2020 12:00:00 AM [facility] Metformin hydrochloride 1000 MG Oral Tablet 01/22/2020 12:00:00 AM [facility] 200 ACTUAT Albuterol 0.09 MG/ACTUAT Metered Dose Inhal er [Ventolin] 01/12/2020 12:00:00 AM [facility] 30 ACTUAT fluticasone furoate 0.2 MG/ACTUAT Dry Powder Inhaler [Arnuity] 01/12/2020 12:00:00 AM [facility] 30 ACTUAT umeclidinium 0.0625 MG/ACTUAT / vilanterol 0.025 MG/ACTUAT Dry Powder Inhaler [Anoro] 01/12/2020 12:00:00 AM [facility] Pravastatin Sodium 20 MG Oral Tablet 12/31/2019 12:00:00 AM [facility] Glipizide 10 MG Oral Tablet 12/31/2019 12:00:00 AM [facility] Amlodipine 5 MG Oral Tablet 12/31/2019 12:00:00 AM [facility]
--- NOTE | 2020-03-22 11:03 | REP ---
INDICATION: CHEST PAIN COMPARISON: 03/19/2020 TECHNIQUE: Portable AP view of the chest FINDINGS: The mediastinum and cardiac silhouette are stable and within normal limits for portable technique. The lung diaz again demonstrate chronic changes with significant superimposed bilateral infiltrates and stable small pleural effusions. IMPRESSION: Bilateral opacities and small pleural effusions. Differential diagnosis includes CHF as well as multifocal pneumonia. <Electronically signed by Jacob Mulligan > 03/22/20 [id number]
--- OUTSIDE RECORDS SUMMARY | 2020-03-22 11:21 | CCD ---
Author Author [facility] Organization [facility] Address Unknown Phone Unavailable Care Team Providers Care Dba Manager Name Role Phone Drew Myles MD Unavailable [...] Unavailable Unavailable SleLeonor pierce MD Unavailable Unavailable SleLeonor pierce MD Unavailable Unavailable Amarjit [employer] Unavailable Unavailable SleAmarjit piercetech Unavailable Unavailable SleLeonor pierce MD Unavailable Unavailable [...] is protected by Article 27-F of the [facility] Public Health law. If you continue you may have access to information: Regarding HIV / AIDS; Provided by facilities licensed or operated by the [facility] Office of Mental Health; or Provided by the [facility] Office for People With Developmental Disabilities. If such information is present, then the following [facility] mandated warning applies: This information has [...] law may result in a fine or nursing home sentence or both. A general authorization for the release of medical or other information is NOT sufficient authorization for further disc losure. Encounters Encounter Providers Location Date Indications Data Source(s ) Outpatient Attender: Leonor Ordonez MDReferrer: Law jhon Myles MD [email or web address] 03/07/2020 12:00:00 AM EST - 03/07/2020 10:53:26 AM EST [facility] Outpatient Attender: Wisam Smith/Felix/Daniel/R eindmartin 02/02/2020 08:30:00 AM EST [facility] ([facility] Outpatient Attender: Wisam Smith/Felix/Daniel/R eindl 01/12/2020 09:00:00 AM EST [facility] ([facility] Medications Medication Brand Name Start Date Product Form Dose Route Admi nistrative Instructions Pharmacy Instructions Status Indications Reaction Description Data Source(s) 10 mg 03/20/2020 12:00:00 AM EST tablet 30 TAKE ONE TABLET BY MOUTH EVERY OTHER DAY TAKE ONE TABLET BY MOUTH EVERY OTHER DAY SOLD: 03/20/2020 [facility] Prednisone 10 MG Oral Tablet predniSONE (DELTASONE) 10 MG tablet predniSONE (DELTASONE) 10 MG tablet 02/27/2020 12:00:00 AM EST active TAKE 4 TABLETS DAILY FOR 4 DAYS THEN 3 DAILY FOR 4 DAYS THEN 2 DAILY FOR 4 DAYS THEN 1 DAILY FOR 4 DAYS THEN STOP [facility] 10 mg 02/27/2020 12:00:00 AM EST tablet [...] FOR 4 DAYS THEN STOP SOLD: 02/27/2020 [facility] canagliflozin 100 MG Oral Tablet [Invokana] INVOKANA 1 00 MG TABS INVOKANA 100 MG TABS 02/14/2020 12:00:00 AM EST 1 {tbl} Oral active Take 1 tablet by mouth daily [facility] Metformin hydrochloride 1000 MG Oral Tab let metFORMIN (GLUCOPHAGE) 1000 MG tablet metFORMIN (GLUCOPHAGE) 1000 MG tablet 01/22/2020 12:00:00 AM EST active [facility] 30 ACTUAT fluticasone furoate 0.2 MG/ACT UAT Dry Powder Inhaler [Arnuity] ARNUITY ELLIPTA 200 MCG/ACT AEPB ARNUITY ELLIPTA 200 MCG/ACT AEPB 01/12/2020 12:00:00 AM EST active [facility] 30 ACTUAT umeclidinium 0.0625 MG/ACTUAT / vilanterol 0.025 MG/ACTUAT Dry Powder Inhaler [Anoro] ANORO ELLIPTA 62.5-25 MCG/INH inhaler ANORO ELLIPTA 62.5-25 MCG/INH inhaler 01/12/2020 12:00:00 AM EST active [facility] 30 ACTUAT fluticasone furoate 0.2 MG/ACTUAT Dry Powder Inhaler [Arnuity] Arnuity Ellipta 01/12/2020 12:00:00 AM EST RESPIRATORY active [facility] ([facility] 30 ACTUAT umeclidinium 0.0625 MG/ACTUAT / vilanterol 0.025 MG/ACTUAT Dry Powder Inhaler [Anoro] Anoro Ellipta 01/12/2020 12:00:00 AM EST RESPIRA TORY active [facility] ([facility] ) 200 ACTUAT Albuterol 0.09 MG/ACTUAT Metered Dose Inhal er [Ventolin] Ventolin HFA 01/12/2020 12:00:00 AM EST RESPIRATORY active [facility] ([facility], ) 200 ACTUAT Albuterol 0.09 MG/ACTUAT Mete red Dose Inhaler [Ventolin] VENTOLIN HFA 108 (90 Base) MCG/ACT inhaler VENTOLIN HFA 108 (90 Base) MCG/ACT inhaler 01/12/2020 12:00:00 AM EST active [facility] Glipizide 10 MG Oral Tablet glipiZIDE (GLUCOTROL) 10 M G tablet glipiZIDE (GLUCOTROL) 10 MG tablet 12/31/2019 12:00:00 AM EST active [facility] Amlodipine 5 MG Oral Tablet amLODIPine (NORVASC) 5 MG tablet amLODIPine (NORVASC) 5 MG tablet 12/31/2019 12:00:00 AM EST a ctive [facility] Pravastatin Sodium 20 MG Oral Tablet pravastatin (PRAV ACHOL) 20 MG tablet pravastatin (PRAVACHOL) 20 MG tablet 12/31/2019 12:00:00 AM EST active [facility] Insurance Providers Payer name Policy type / Coverage type Policy ID Covered libertarian ID Covered libertarian's relationship to lima Policy [place] Plan Information [facility] [id number] CA2 [id number] [facility] [id number] [facility] [id number] [facility] [id number] [facility] [id number] [facility] [id number] [facility] [id number] CA2 [id number] [facility] [id number] CA2 [id number] [facility] [id number] CA2 [id number] MEDICARE [id number] SP [id number] A MEDICARE [id number] SP [id number] A POM[facility] [id number] [facility] [id number] [facility] [id number] SP [id number] SELF PAY UNAVAILABLE SP UNAVAILA MARLYN [facility] PHY [id number] SP [id number] Problems, Conditions, and Diagnoses Code Display Name Description Problem Type Effective Dates Data Source(s) I25.10 Coronary artery disease invo lving atka coronary artery of [place] heart without angina pectoris Coronary artery disease involving [place]ka coronary artery of [place] heart without angina pectoris [id number] 03/07/2020 12:00:00 AM EST [facility] Z01.810 Preoperative cardiovascular examination Preoperative cardiovascular examination [id number] 03/07/2020 12:00:00 AM EST [facility] [id number] Type 2 diabetes mellitus Type 2 diabetes mellitus Prob bethany 02/19/2020 12:00:00 AM EST [facility] ([facility] ) I25.10 Atherosclerotic heart diseas e of [place] coronary artery without angina pectoris Atherosclerotic heart disease of [place] Diagnosis 03/07/2020 09:20:55 AM EST [facility] Z01.810 Encounter for preprocedural cardiovascul ar examination Encounter for preprocedural cardiovascul Diagnosis 03/07/2020 09:20:55 AM EST [facility] Surgeries/Procedures Procedure Description Date Indications Data Source(s) POCT AMB EKG POCT AMB EKG Routine 03/07/2020 11:10 AM EST Preoperative cardiovascular examination Coronary artery disease involving atka coronary artery of [place] heart without angina pectoris 03/07/2020 04:10:00 PM EST Coronary jevon ry disease involving atka coronary artery of [place] heart without angina pectorisPreoperative cardiovascular examination [facility] Coronary artery disease involving atka coronary artery of [place] heart without angina pectoris Preoperative cardiovascular examination Bronchospasm Evaluation 01/26/2020 12:00:00 AM EST [facility] ([facility]) Maximum Breathing Capacity, Maximal Voluntary Ventilation 01/26/2020 12:00:00 AM EST [facility] ([facility] Plethysmography Determination Lung Volumes & Per Airway Resi st 01/26/2020 12:00:00 AM EST [facility] ([facility] DIFFUSING CAPACITY 01/26/2020 12:00:00 AM EST [facility] ([facility]) Spirometry 01/12/2020 12:00:00 AM EST [facility] ([facility]) DEMO&/EVAL OF PT UTILIZ AERSL GEN/NEB/INHLR/IPPB 01/11 12:00:00 AM EST [facility] ([facility]) Results ID Date Data Source [id number] 01/12/2020 09:58:00 AM EST [facility] ([facility]) Name Value Range Interpretation Code Description Data Tootie rce(s) Supporting Document(s) PDFReport Laboratory test result [facility] ([facility]) FVC-Pred 4.43 L [facility] ([facility]) FVC-Pre 2.19 L [facility] ([facility]) FVC-%Pred-Pre 49 L [facility] ([facility]) FVC-LLN 3.49 L [facility] ([facility]) Fev1-Pred 3.26 L [facility] ([facility]) Fev1-Pre 1.23 L [facility] ([facility]) Fev1-%Pred-Pre 37 L [facility] ([facility]) Fev6-Pred 4.18 L [facility] ([facility]) Fev1-LLN 2.47 L [facility] ([facility]) Fev6-Pre 2.13 L [facility] ([facility]) Fev6-%Pred-Pre 51 L [facility] ([facility]) Fev6-LLN 3.27 L [facility] ([facility]) Brh3ffg-Tgjy 74 % [facility] ([facility]) Bzi1jgz-%Pred-Pre 76 % [facility] ([facility]) Yyg9nde-Hxa 56 % [facility] ([facility]) Gmy7vgl-AWW 64 % [facility] ([facility]) Meb1hnb-Brih 94 % [facility] ([facility]) Rzn9vxb-Ipn 97 % [facility] ([facility]) Hts2akj-%Pred-Pre 103 % [facility] ([facility]) FEFMax-Pred 8.36 L/E/sec [facility] ([facility]) FEFMax-Pre 3.28 L/E/sec [facility] ([facility]) FEFMax-%Pred-Pre 39 L/E/sec [facility] ([facility]) FEFMax-LLN 6.04 L/E/sec [facility] ([facility]) [id number] 2.47 L/E/sec [facility] ([facility]) Efx4858-Tly 0.53 L/E/sec [facility] ([facility]) Itv9703-%Pred-Pre 21 L/E/sec [facility] ([facility]) [id number]-DUC 0.87 L/E/sec [facility] ([facility]) ExpTime-Pre 6.99 sec [facility] ([facility]) Qqw7yez8-Bgvj 78 % [facility] ([facility]) Tlp0xrc8-Utu 58 % [facility] ([facility]) Fod1rrz9-%Pred-Pre 74 % [facility] ([facility]) Elj2xyr1-BQW 69 % [facility] ([facility]) Procedure Social History Code Duration Value Status Description Data Source(s ) Alcohol intake 03/07/2020 12:00:00 AM EST Not Currently completed [facility] Cigarette pack-years 03/07/2020 12:00:00 AM EST UNK completed [facility] Cigarettes smoked current (pack per day) - Reported 03/07/19 12:00:00 AM EST UNK completed [facility] Smoking 03/07/2020 12:00:00 AM EST Former smoker completed Former smoker [facility] Smoking 02/20/2020 12:00:00 AM EST Patient is a former smoker completed Patient is a former smoker [facility] ([facility], ) Smoking 01/12/2020 12:00:00 AM EST Former Cigarette Smok er 2 Packs Daily completed Former Cigarette Smoker 2 Packs Daily [facility] ([facility]) Vital Signs ID Date Data Source UNK Name Value Range Interpretation Code Description Data Source(s) Oxygen saturation in Arterial blood by Pulse oximetry 90 % 90 % [facility] Body weight 87.544 kg 87.544 kg [facility] Heart rate 101 /min 101 /min [facility] Diastolic blood pressure 72 mm[Hg] 72 mm[Hg] [facility] Systolic blood pressure 146 mm[Hg] 146 mm[Hg] [facility] Body surface area Derived from formula 2.05 m2 2.05 m2 [facility] ([facility]) Body weight 86.638 kg 86.638 kg [facility] ([facility]) [place] body weight 166 [lb_av] 166 [lb_av] [facility] Body mass index (BMI) [Ratio] 27.4 kg/m2 27.4 k g/m2 [facility] ([facility]) Body weight 191.00 [lb_av] 191.00 [lb_av] [facility] Body height 70 [in_i] 70 [in_i] [facility] ([facility]) 5'10" Oxygen saturation in Arterial blood by Pulse oximetry 90 % 90 % [facility] ([facility]) Heart rate 94 /min 94 /min [facility] ([facility]) Diastolic blood pressure 70 mm[Hg] 70 mm[Hg] [facility] ([facility]) Systolic blood pressure 140 mm[Hg] 140 mm[Hg] [facility] Body surface area Derived from formula 2.04 m2 2.04 m2 [facility] ([facility]) Body weight 86.184 kg 86.184 kg [facility] ([facility]) [place] body weight 166 [lb_av] 166 [lb_av] [facility] ([facility]) Body mass index (BMI) [Ratio] 27.3 kg/m2 27.3 k g/m2 [facility] ([facility]) Body weight 190.00 [lb_av] 190.00 [lb_av] [facility] Body height 70 [in_i] 70 [in_i] [facility] ([facility]) 5'10" Body temperature 96.0 [degF] 96.0 [degF] [facility] ([facility]) Oxygen saturation in Arterial blood by Pulse oximetry 91 % 91 % [facility] ([facility]) Heart rate 89 /min 89 /min [facility] ([facility]) Diastolic blood pressure 62 mm[Hg] 62 mm[Hg] [facility] ([facility]) Systolic blood pressure 140 mm[Hg] 140 mm[Hg] [facility] ([facility]) Body surface area Derived from formula 2.05 m2 2.05 m2 [facility] ([facility]) Body weight 87.091 kg 87.091 kg [facility] ([facility]) [place] body weight 166 [lb_av] 166 [lb_av] [facility] Body mass index (BMI) [Ratio] 27.5 kg/m2 27.5 k g/m2 [facility] ([facility]) Body weight 192.00 [lb_av] 192.00 [lb_av] [facility] Body height 70 [in_i] 70 [in_i] [facility] ([facility]) 5'10" Oxygen saturation in Arterial blood by Pulse oximetry 90 % 90 % [facility] ([facility]) Heart rate 72 /min 72 /min [facility] ([facility]) Diastolic blood pressure 80 mm[Hg] 80 mm[Hg] [facility] ([facility]) Systolic blood pressure 142 mm[Hg] 142 mm[Hg] [facility] ([facility]) Patient Treatment Plan of Care Planned Activity Planned Date Details Description Data Source (s) Prednisone 10 MG Oral Tablet 02/27/2020 12:00:00 AM [facility] canagliflozin 100 MG Oral Tablet [Invokana] 02/14/2020 12:00:00 AM [facility] Metformin hydrochloride 1000 MG Oral Tablet 01/22/2020 12:00:00 AM [facility] 200 ACTUAT Albuterol 0.09 MG/ACTUAT Metered Dose Inhal er [Ventolin] 01/12/2020 12:00:00 AM [facility] 30 ACTUAT fluticasone furoate 0.2 MG/ACTUAT Dry Powder Inhaler [Arnuity] 01/12/2020 12:00:00 AM [facility] 30 ACTUAT umeclidinium 0.0625 MG/ACTUAT / vilanterol 0.025 MG/ACTUAT Dry Powder Inhaler [Anoro] 01/12/2020 12:00:00 AM [facility] Pravastatin Sodium 20 MG Oral Tablet 12/31/2019 12:00:00 AM [facility] Glipizide 10 MG Oral Tablet 12/31/2019 12:00:00 AM [facility] Amlodipine 5 MG Oral Tablet 12/31/2019 12:00:00 AM [facility]
[2020-03-22 11:22] LABS: BASO # 0.1 10^3/uL (0.0-0.2); BASO % 0.7 % (0.0-1.0); EOS # 0.2 10^3/uL (0.0-0.5); EOS % 2.5 % (0.0-3.0); HEMOGLOBIN 14.5 g/dl (13.5-17.5); LYMPH % 13.6 % (24.0-44.0); MEAN CORPUSCULAR HEMOGLOBIN 27.6 pg (27.0-33.0); MEAN CORPUSCULAR HGB CONC 30.9 g/dl (32.0-36.5); MEAN CORPUSCULAR VOLUME 89.5 fl (80.0-96.0); MONO # 0.4 10^3/uL (0.0-0.8); MONO % 5.3 % (0.0-5.0); NEUTROPHILS # 5.5 10^3/uL (1.5-8.5); NEUTROPHILS % 77.6 % (36.0-66.0); PLATELET COUNT, AUTOMATED 252 10^3/uL (150-450); RED BLOOD COUNT 5.25 10^6/uL (4.30-6.10); WHITE BLOOD COUNT 7.1 10^3/uL (4.0-10.0)
[2020-03-22 11:33] LABS: INR 0.97; PROTHROMBIN TIME 13.1 SECONDS (12.5-14.3)
[2020-03-22] MEDS ORDERED: PRED10TA2 PO (11:52)
[2020-03-22 12:03] LABS: BLOOD UREA NITROGEN 18 MG/DL (7-18); CALCIUM LEVEL 8.8 MG/DL (8.8-10.2); CARBON DIOXIDE LEVEL 27 MEQ/L (21-32); CHLORIDE LEVEL 106 MEQ/L (98-107); CK-MB VALUE MASS 2.5 NG/ML (<3.6); CPK CREATINE PHOSPHOKINASE 50 U/L (39-308); CREATININE FOR GFR 0.98 MG/DL (0.70-1.30); GLOMERULAR FILTRATION RATE > 60.0 (>42); GLUCOSE, FASTING 186 MG/DL (70-100); SODIUM LEVEL 143 MEQ/L (136-145); TROPONIN I 0.02 NG/ML (< 0.10)
[2020-03-22 12:33] LABS: ALBUMIN 3.2 GM/DL (3.2-5.2); ALT/SGPT 43 U/L (12-78); BILIRUBIN,DIRECT 0.2 MG/DL (0.0-0.2); BILIRUBIN,TOTAL 1.2 MG/DL (0.2-1.0); NT-PRO BNP 2505 PG/ML (<125); TOTAL PROTEIN 6.8 GM/DL (6.4-8.2)
[2020-03-22] MEDS ORDERED: FUROSEMIDE 40MG/4ML VIAL (J1940) IV ONE (12:45)
[2020-03-22] MEDS ORDERED: ISOVUE-370 76% 100ML VIAL As Ordered ONE (13:11)
--- NOTE | 2020-03-22 13:29 | REP ---
INDICATION: chest pain/sob. COMPARISON: Comparison chest CT study December 29, 2019.. TECHNIQUE: Contrast dose: 75 ML of Isovue [address] technique: Helical scanning is acquired and overlapping 1.5 mm and contiguous 3 mm axial images are reformatted. In addition, maximum intensity projection and multiplanar re-formation images are generated in sagittal and coronal imaging projections. FINDINGS: There is good opacification in the pulmonary arterial tree. There is no evidence of vessel cut off or filling defect to suggest pulmonary embolus. Homogeneous opacity is seen in the thoracic aorta. There is no evidence of aneurysm or dissection. Lung window settings demonstrate small to moderate bilateral pleural effusions. This is a new finding. There is vascular congestion, fissural thickening, and subtle alveolar edema. A 17 mm noncalcified pulmonary nodule is again noted in the right upper lobe essentially unchanged from the December 29, [address] study. This could be a malignant nodule. There are bibasilar atelectatic changes. There is a 5 mm nodular density in the left upper lobe today this was not previously apparent. No other pulmonary nodule is seen. There are suspicious lymph nodes in the mediastinum. The largest of these is a subcarinal node which measures 1.8 by 3.0 cm in diameter. In the upper abdomen, there are normal adrenal glands. The visualized upper abdominal structures are otherwise unremarkable. No bony destructive lesion is seen. IMPRESSION: 1. No CT evidence of pulmonary embolus. 2. Bilateral pleural effusions small to moderate in size with mild alveolar edema and vascular congestion. CHF pattern. 3. 17 mm suspicious right upper lobe pulmonary nodule again seen. 4. Mediastinal lymphadenopathy with progressive changes since December 29, 2019. rule out bronchogenic malignancy. . <Electronically signed by Rogelio Feliciano > 03/22/20 [id number]
--- NOTE | 2020-03-22 15:59 | REP ---
INDICATION: Asymmetrical swelling of legs COMPARISON: None. TECHNIQUE: Real time compression and duplex Doppler interrogation of the left lower extremity deep venous system is performed. FINDINGS: The left common femoral, superficial femoral and popliteal veins are fully compressible with transducer pressure and demonstrate normal spontaneous and phasic flow, without evidence of deep venous thrombosis. Complex Arroyo's cyst measures 3.3 x 1.1 x 1.9 cm. IMPRESSION: No evidence of deep venous thrombosis of the left lower extremity femoral popliteal venous system. Complex Arroyo's cyst. <Electronically signed by Lino Spann > 03/22/20 [id number]
[2020-03-22] MEDS ORDERED: LASI40TA9 PO (16:24)
[2020-03-22] MEDS ORDERED: POTA20TA6 PO (16:24)
[2020-03-22] MEDS ORDERED: [UNRECOGNIZED DRUG - REMARK] (16:29)
[2020-03-22 16:45] VITALS: BP 136/69
--- NOTE | 2020-03-22 19:27 | ECGEPIP ---
[facility] - ED Test Date: 2020-03-22 Pat Name: CHETNA ROSARIO Department: Room: - Gender: Male [employer] Rn: : 1950 Requested By: EWA Wang Order Number: [id number] Reading MD: Krystian Cohn Measurements Intervals [place] Rate: 96 P: 53 NE: 157 QRS: 1 QRSD: 144 T: 142 QT: 387 QTc: 491 Interpretive Statements SINUS RHYTHM WITH SINUS ARRHYTHMIA LEFT BUNDLE BRANCH BLOCK NO PRIORS FOR COMPARISON Electronically Signed on 03-22-2020 19:27:17 EST by Krystian Cohn
--- NOTE | 2020-03-22 22:36 | ED PDOC ---
Post-Departure Follow-Up cta chest formal report faxed to dr gaines for fu Landon Delcid MD Mar 22, 2020 22:36
== END 2020-03-22 16:55 | disposition home or self-care (01) ==
LOC: M ED 10:23
DX: I11.0 Hypertensive heart disease with heart failure (principal); J90 Pleural effusion, not elsewhere classified; R94.31 Abnormal electrocardiogram [ECG] [EKG]; R91.1 Solitary pulmonary nodule; M71.22 Synovial cyst of popliteal space [Baker], left knee; R59.0 Localized enlarged lymph nodes; E78.5 Hyperlipidemia, unspecified; E11.9 Type 2 diabetes mellitus without complications; F17.200 Nicotine dependence, unspecified, uncomplicated; Z88.1 Allergy status to other antibiotic agents; Z79.82 Long term (current) use of aspirin; Z79.899 Other long term (current) drug therapy
CPT/HCPCS: 71045; 71275; 80048; 80076; 82550; 82553; 83880; 84484; 85025; 85610; 93005; 93041; 93971; 94760; 96374; 99285; J1940; Q9967

== ENCOUNTER → 2020-03-26 | Outpatient (CLI) | payer OTHER ==
[~2020-03-26] MED LIST changes: +LASI40TA9 PO; +POTA20TA6 PO; +PRED10TA2 PO; +[UNRECOGNIZED DRUG - REMARK]
[2020-03-26 10:42] LABS: CREATININE FOR GFR 1.45 MG/DL (0.70-1.30); GLOMERULAR FILTRATION RATE 51.1 (>42); POTASSIUM SERUM 4.5 MEQ/L (3.5-5.1)
== END ==
LOC: M PLALAB 08:33
PROVIDERS: ATTEND Internal Medicine
DX: I50.9 Heart failure, unspecified (principal)

== ENCOUNTER → 2020-04-23 | Outpatient (CLI) | payer OTHER ==
[2020-04-23 10:25] LABS: HEMATOCRIT 46.4 % (42.0-52.0); HEMOGLOBIN 13.9 g/dl (13.5-17.5); MEAN CORPUSCULAR HEMOGLOBIN 26.9 pg (27.0-33.0); MEAN CORPUSCULAR VOLUME 89.9 fl (80.0-96.0); PLATELET COUNT, AUTOMATED 313 10^3/uL (150-450); RED BLOOD COUNT 5.16 10^6/uL (4.30-6.10); WHITE BLOOD COUNT 7.7 10^3/uL (4.0-10.0)
[2020-04-23 11:02] LABS: CALCIUM LEVEL 9.4 MG/DL (8.8-10.2); CREATININE FOR GFR 1.6 MG/DL (0.70-1.30); GLOMERULAR FILTRATION RATE 45.6 (>42); POTASSIUM SERUM 5.4 MEQ/L (3.5-5.1)
== END ==
LOC: M PLALAB 08:06
PROVIDERS: ATTEND Internal Medicine Cardiovascular Disease
DX: I50.9 Heart failure, unspecified (principal); I25.10 Atherosclerotic heart disease of native coronary artery without angina pectoris

== ENCOUNTER → 2020-05-10 | Outpatient (CLI) | payer OTHER | LOC: M LABSMTC 12:42 | PROVIDERS: ATTEND Internal Medicine Cardiovascular Disease | DX: I25.10 Atherosclerotic heart disease of native coronary artery without angina pectoris (principal) ==

== ENCOUNTER → 2020-05-25 | Outpatient (REF) | payer OTHER ==
[2020-05-25 15:58] LABS: CALCIUM LEVEL 9.5 MG/DL (8.8-10.2); CREATININE FOR GFR 1.92 MG/DL (0.70-1.30); GLOMERULAR FILTRATION RATE 36.9 (>42); POTASSIUM SERUM 4.2 MEQ/L (3.5-5.1)
== END ==
LOC: M LAB REF 15:20
DX: I25.10 Atherosclerotic heart disease of native coronary artery without angina pectoris (principal)

== ENCOUNTER → 2020-07-21 | Outpatient (CLI) | payer OTHER ==
[2020-07-21 10:27] LABS: ALBUMIN 3.4 GM/DL (3.2-5.2); BILIRUBIN,TOTAL 0.9 MG/DL (0.2-1.0); CALCIUM LEVEL 8.7 MG/DL (8.8-10.2); CHOLESTEROL RISK RATIO 2.818 (<5); CREATININE FOR GFR 1.75 MG/DL (0.70-1.30); GLOMERULAR FILTRATION RATE 41.1 (>42); POTASSIUM SERUM 4.2 MEQ/L (3.5-5.1); TOTAL PROTEIN 7.7 GM/DL (6.4-8.2)
[2020-07-21 10:29] LABS: HEMOGLOBIN A1c 7.9 %
== END ==
LOC: M LAB 08:56
PROVIDERS: ATTEND Nurse Practitioner Family
DX: E11.9 Type 2 diabetes mellitus without complications (principal)

== ENCOUNTER → 2020-08-22 | Outpatient (REF) | payer OTHER, MEDICARE | LOC: M LAB REF 17:49 | PROVIDERS: ATTEND Internal Medicine Nephrology | DX: E83.42 Hypomagnesemia (principal) ==

== ENCOUNTER → 2020-09-03 | Outpatient (CLI) | payer OTHER ==
--- NOTE | 2020-09-03 14:33 | REP ---
INDICATION: CKD 3B. COMPARISON: Comparison is made with imaging from PET-CT study dated January 31, 2020.. TECHNIQUE: Urinary tract sonography. FINDINGS: Scanning at the level of the urinary bladder shows no abnormality. The prostate is somewhat enlarged with dimensions by transabdominal scanning of 5.3 x 3.2 x 5.4 cm, calculated volume 48 mL. Renal cortical echogenicity pattern is normal bilaterally and contours are smooth. There is no evidence of hydronephrosis, cyst, mass, or calculus in either kidney. The right kidney measures 11.1 x 5.9 x 4.6 cm. Left renal dimensions are 12.7 x 5.0 x 6.9 cm. IMPRESSION: Prominent prostate gland. Otherwise negative.. <Electronically signed by Rogelio Feliciano > 09/03/20 [id number]
== END ==
LOC: M RAD 12:10
PROVIDERS: ATTEND Internal Medicine Nephrology
DX: N18.32 Chronic kidney disease, stage 3b (principal)

== ENCOUNTER → 2020-10-23 | Outpatient (REF) | payer OTHER | LOC: M LAB REF 13:05 | PROVIDERS: ATTEND Internal Medicine Nephrology | DX: E83.42 Hypomagnesemia (principal) ==

== ENCOUNTER → 2020-12-17 | Outpatient (CLI) | payer OTHER ==
[2020-12-17 11:52] LABS: HEMOGLOBIN A1c 7.4 %
[2020-12-17 12:34] LABS: GLOMERULAR FILTRATION RATE 35.2 (>42); POTASSIUM SERUM 3.7 MEQ/L (3.5-5.1)
[2020-12-17 12:35] LABS: ALBUMIN 3.5 GM/DL (3.2-5.2); BILIRUBIN,TOTAL 1.4 MG/DL (0.2-1.0); CALCIUM LEVEL 8.9 MG/DL (8.8-10.2); CHOLESTEROL RISK RATIO 3.157 (<5); TOTAL PROTEIN 7.4 GM/DL (6.4-8.2)
[2020-12-17 12:43] LABS: CREATININE, URINE 38.5 MG/DL; MALB URINE SIEMENS 19.5 MG/L; MAU/CREAT RATIO 50.6 MCG/MG (0.0-30.0)
== END ==
LOC: M PLALAB 08:24
PROVIDERS: ATTEND Nurse Practitioner Family
DX: I10 Essential (primary) hypertension (principal); E11.9 Type 2 diabetes mellitus without complications; E78.5 Hyperlipidemia, unspecified; Z12.5 Encounter for screening for malignant neoplasm of prostate
CPT/HCPCS: 36415; 80053; 80061; 82043; 83036; G0103

== ENCOUNTER → 2021-06-10 | Outpatient (CLI) | payer MEDICARE, OTHER ==
[~2021-06-10] MED LIST changes: +POTA-151 PO; -POTA20TA6 PO
[2021-06-10 10:59] LABS: BASO # 0.1 10^3/uL (0.0-0.2); BASO % 0.7 % (0.0-1.0); EOS # 0.3 10^3/uL (0.0-0.5); EOS % 4.3 % (0.0-3.0); HEMATOCRIT 48.3 % (42.0-52.0); HEMOGLOBIN 15.1 g/dl (13.5-17.5); LYMPH # 0.6 10^3/uL (1.5-5.0); LYMPH % 9.2 % (24.0-44.0); MEAN CORPUSCULAR HEMOGLOBIN 28.8 pg (27.0-33.0); MEAN CORPUSCULAR HGB CONC 31.3 g/dl (32.0-36.5); MONO # 0.6 10^3/uL (0.0-0.8); MONO % 8.6 % (2.0-8.0); NEUTROPHILS # 5.2 10^3/uL (1.5-8.5); NEUTROPHILS % 76.9 % (36.0-66.0); PLATELET COUNT, AUTOMATED 217 10^3/uL (150-450); RED BLOOD COUNT 5.25 10^6/uL (4.30-6.10); WHITE BLOOD COUNT 6.7 10^3/uL (4.0-10.0)
[2021-06-10 11:20] LABS: ALBUMIN 3.8 GM/DL (3.2-5.2); BILIRUBIN,TOTAL 1.5 MG/DL (0.2-1.0); CALCIUM LEVEL 9.3 MG/DL (8.8-10.2); CHOLESTEROL RISK RATIO 3.264 (<5); CREATININE FOR GFR 1.73 MG/DL (0.70-1.30); GLOMERULAR FILTRATION RATE 41.5 (>42); POTASSIUM SERUM 4.1 MEQ/L (3.5-5.1); TOTAL PROTEIN 7.6 GM/DL (6.4-8.2)
[2021-06-10 11:29] LABS: CREATININE, URINE 41.7 MG/DL; MALB URINE SIEMENS 35.7 MG/L; MAU/CREAT RATIO 85.6 MCG/MG (0.0-30.0)
== END ==
LOC: M PLALAB 07:54
PROVIDERS: ATTEND Nurse Practitioner Family
DX: I10 Essential (primary) hypertension (principal); E78.5 Hyperlipidemia, unspecified; E11.9 Type 2 diabetes mellitus without complications

== ENCOUNTER → 2021-08-01 | Outpatient (CLI) | payer OTHER, MEDICARE | LOC: M PLALAB 08:06 | PROVIDERS: ATTEND Internal Medicine Hematology | DX: Z01.818 Encounter for other preprocedural examination (principal) ==

== ENCOUNTER → 2021-08-23 | Outpatient (CLI) | payer OTHER, MEDICARE | LOC: M PLALAB 11:32 | PROVIDERS: ATTEND Nurse Practitioner Family | DX: I10 Essential (primary) hypertension (principal) ==

== ENCOUNTER → 2021-11-20 | Outpatient (CLI) | payer MEDICARE, OTHER ==
[~2021-11-20] MED LIST changes: +CARV25TA; +EZET10TA21; +GLIP2.5T6; +PLAV1TAB2 PO; +TORS20TA2; +TRUL0.5I
== END ==
LOC: M LABSMTC 10:12
PROVIDERS: ATTEND Anesthesiology
DX: Z01.818 Encounter for other preprocedural examination (principal); Z11.52 Encounter for screening for COVID-19

== ENCOUNTER 2021-11-25 06:29 | Day surgery (SDC) | payer MEDICARE, OTHER ==
[~2021-11-25] VITALS: Ht 177.8 cm; Wt 80.9 kg
[2021-11-25] MEDS ORDERED: PHENYLEPHRINE HCL 10 % OPHTH. SOL 5ML OS PRN (06:30)
[2021-11-25] MEDS ORDERED: OFLOXACIN 0.3 % (OCUFLOX) OPTH SOL 5ML OS ONE (06:30)
[2021-11-25] MEDS ORDERED: LIDOCAINE 3.5 % 1ML OPHTH TOPICAL GEL OU ONE (06:30)
[2021-11-25] MEDS ORDERED: DUOVISC (0.50ML VISCOAT/0.85ML PROVISC) OPHTH KIT As Ordered ONE ×2 (06:43→06:47)
[2021-11-25] MEDS ORDERED: CEFUROXIME 1MG/0.1ML INTRACAMERAL INJ As Ordered ONE (06:43)
[2021-11-25] MEDS ORDERED: LIDOCAINE 1% SDV 5ML VIAL As Ordered ONE (06:43)
[2021-11-25] MEDS ORDERED: POVIDONE-IODINE 5% OPHTH PREP SOL 30ML As Ordered ONE (06:43)
[2021-11-25] MEDS: CYCLOPENTOLATE 1% OPHTH SOLN 2 ML BTL OS SCH ×3 (07:03→07:30)
[2021-11-25] MEDS: TROPICAMIDE 1% OPHTH SOLN 2ML OS SCH ×3 (07:03→07:31)
[2021-11-25] MEDS: PHENYLEPHRINE 2.5% OPHTH SOL 2ML OS SCH ×3 (07:03→07:30)
[2021-11-25] MEDS ORDERED: MIDAZOLAM INJ 2MG/2ML VIAL (J2250 PER 1MG) As Ordered ONE (07:15)
[2021-11-25] MEDS ORDERED: BSS IRRIG/VANCO(10MG)/TOBRA(5MG)/EPINEPH(1:1000-0.5CC)500ML BAG-ORONLY IR ONE (07:50)
[2021-11-25 08:32] VITALS: BP 188/71
== END 2021-11-25 08:46 | disposition home or self-care (01) ==
LOC: M SDC 06:29
PROVIDERS: ATTEND Ophthalmology
DX: H25.12 Age-related nuclear cataract, left eye (principal); I25.2 Old myocardial infarction; E78.5 Hyperlipidemia, unspecified; E11.9 Type 2 diabetes mellitus without complications; I10 Essential (primary) hypertension; Z98.61 Coronary angioplasty status; N40.0 Benign prostatic hyperplasia without lower urinary tract symptoms; Z79.02 Long term (current) use of antithrombotics/antiplatelets; Z79.82 Long term (current) use of aspirin; Z79.84 Long term (current) use of oral hypoglycemic drugs; Z79.899 Other long term (current) drug therapy; Z88.1 Allergy status to other antibiotic agents; Z88.0 Allergy status to penicillin
CPT/HCPCS: 66988; C1783; J0697; J2250

== ENCOUNTER → 2021-12-23 | Outpatient (CLI) | payer OTHER ==
[~2021-12-23] MED LIST changes: +CLOP75TA99 PO; -PLAV1TAB2 PO
[2021-12-23 12:42] LABS: BASO # 0.1 10^3/uL (0.0-0.2); BASO % 0.8 % (0.0-1.0); EOS # 0.4 10^3/uL (0.0-0.5); EOS % 4.6 % (0.0-3.0); HEMATOCRIT 51.2 % (42.0-52.0); HEMOGLOBIN 15.9 g/dl (13.5-17.5); LYMPH % 12.8 % (24.0-44.0); MEAN CORPUSCULAR HEMOGLOBIN 28.9 pg (27.0-33.0); MEAN CORPUSCULAR HGB CONC 31.1 g/dl (32.0-36.5); MEAN CORPUSCULAR VOLUME 92.9 fl (80.0-96.0); MONO # 0.7 10^3/uL (0.0-0.8); MONO % 8.2 % (2.0-8.0); NEUTROPHILS # 5.7 10^3/uL (1.5-8.5); NEUTROPHILS % 72.5 % (36.0-66.0); PLATELET COUNT, AUTOMATED 180 10^3/uL (150-450); RED BLOOD COUNT 5.51 10^6/uL (4.30-6.10); WHITE BLOOD COUNT 7.9 10^3/uL (4.0-10.0)
[2021-12-23 13:05] LABS: HEMOGLOBIN A1c 7.5 %
[2021-12-23 13:16] LABS: BILIRUBIN,TOTAL 1.3 MG/DL (0.2-1.0); CHOLESTEROL RISK RATIO 3.5 (<5); CREATININE FOR GFR 1.92 MG/DL (0.70-1.30); GLOMERULAR FILTRATION RATE 36.8 (>42); MALB URINE SIEMENS 67.6 MG/L; MAU/CREAT RATIO 54.9 MCG/MG (0.0-30.0); POTASSIUM SERUM 4.4 MEQ/L (3.5-5.1); TOTAL PROTEIN 7.5 GM/DL (6.4-8.2)
== END ==
LOC: M PLALAB 07:43
PROVIDERS: ATTEND Nurse Practitioner Family
DX: E78.5 Hyperlipidemia, unspecified (principal); E11.9 Type 2 diabetes mellitus without complications; I10 Essential (primary) hypertension; Z12.5 Encounter for screening for malignant neoplasm of prostate
CPT/HCPCS: 36415; 80053; 80061; 82043; 83036; 85025; G0103

== ENCOUNTER → 2022-03-26 | Outpatient (CLI) | payer MEDICARE, OTHER ==
[~2022-03-26] MED LIST changes: +VITA100093
== END ==
LOC: M LABSMTC 09:22
PROVIDERS: ATTEND Anesthesiology
DX: Z01.812 Encounter for preprocedural laboratory examination (principal); Z20.822 Contact with and (suspected) exposure to COVID-19

== ENCOUNTER 2022-03-31 08:46 | Day surgery (SDC) | payer OTHER ==
[~2022-03-31] VITALS: Ht 177.8 cm; Wt 79.6 kg
[~2022-03-31 08:46] MED LIST changes: +BSS IRRIG/VANCO(10MG)/TOBRA(5MG)/EPINEPH(1:1000-0.5CC)500ML BAG-ORONLY IR ONE; +CYCLOPENTOLATE 1% OPHTH SOLN 2ML BTL OD SCH; +LIDOCAINE 1% SDV 5ML VIAL As Ordered ONE; +LIDOCAINE 3.5 % 1ML OPHTH TOPICAL GEL OU ONE; +OFLOXACIN 0.3 % (OCUFLOX) OPTH SOL 5ML OD ONE; +PHENYLEPHRINE 10% OPHTH SOL 5ML OD PRN; +PHENYLEPHRINE 2.5% OPHTH SOL 2ML OD SCH; +TROPICAMIDE 1% OPHTH SOLN 15ML OD SCH
[2022-03-31] MEDS ORDERED: MIDAZOLAM INJ 2MG/2ML VIAL As Ordered ONE (08:53)
[2022-03-31] MEDS ORDERED: fentaNYL 100 MCG/2 ML INJECTION As Ordered ONE (08:53)
[2022-03-31] MEDS ORDERED: CEFUROXIME 1MG/0.1ML INTRACAMERAL INJ As Ordered ONE (11:55)
[2022-03-31 12:15] VITALS: BP 177/75
== END 2022-03-31 13:19 | disposition home or self-care (01) ==
LOC: M SDC 08:46
PROVIDERS: ATTEND Ophthalmology
DX: H25.11 Age-related nuclear cataract, right eye (principal); H40.811 Glaucoma with increased episcleral venous pressure, right eye; I25.2 Old myocardial infarction; I10 Essential (primary) hypertension; E78.5 Hyperlipidemia, unspecified; E11.9 Type 2 diabetes mellitus without complications; Z79.899 Other long term (current) drug therapy; Z79.82 Long term (current) use of aspirin; N40.0 Benign prostatic hyperplasia without lower urinary tract symptoms; Z88.0 Allergy status to penicillin; Z79.02 Long term (current) use of antithrombotics/antiplatelets; Z79.84 Long term (current) use of oral hypoglycemic drugs
CPT/HCPCS: 66183; 66987; C1783; J0697; J2250; J3010

== ENCOUNTER → 2022-06-25 | Outpatient (CLI) | payer MEDICARE, OTHER ==
[~2022-06-25] MED LIST changes: -BSS IRRIG/VANCO(10MG)/TOBRA(5MG)/EPINEPH(1:1000-0.5CC)500ML BAG-ORONLY IR ONE; -CYCLOPENTOLATE 1% OPHTH SOLN 2ML BTL OD SCH; -LIDOCAINE 1% SDV 5ML VIAL As Ordered ONE; -LIDOCAINE 3.5 % 1ML OPHTH TOPICAL GEL OU ONE; -OFLOXACIN 0.3 % (OCUFLOX) OPTH SOL 5ML OD ONE; -PHENYLEPHRINE 10% OPHTH SOL 5ML OD PRN; -PHENYLEPHRINE 2.5% OPHTH SOL 2ML OD SCH; -TROPICAMIDE 1% OPHTH SOLN 15ML OD SCH
== END ==
LOC: M RAD 14:17
PROVIDERS: ATTEND Physician Assistant
DX: I65.23 Occlusion and stenosis of bilateral carotid arteries (principal)

== ENCOUNTER → 2022-07-03 | Outpatient (CLI) | payer MEDICARE, OTHER ==
[2022-07-03 11:51] LABS: BASO # 0.1 10^3/uL (0.0-0.2); BASO % 0.8 % (0.0-1.0); EOS # 0.3 10^3/uL (0.0-0.5); EOS % 3.6 % (0.0-3.0); HEMATOCRIT 51.4 % (42.0-52.0); HEMOGLOBIN 15.9 g/dl (13.5-17.5); LYMPH # 0.9 10^3/uL (1.5-5.0); LYMPH % 13.1 % (24.0-44.0); MEAN CORPUSCULAR HGB CONC 30.9 g/dl (32.0-36.5); MEAN CORPUSCULAR VOLUME 90.7 fl (80.0-96.0); MONO # 0.6 10^3/uL (0.0-0.8); MONO % 8.6 % (2.0-8.0); NEUTROPHILS # 5.3 10^3/uL (1.5-8.5); NEUTROPHILS % 73.6 % (36.0-66.0); PLATELET COUNT, AUTOMATED 163 10^3/uL (150-450); RED BLOOD COUNT 5.67 10^6/uL (4.30-6.10); WHITE BLOOD COUNT 7.2 10^3/uL (4.0-10.0)
[2022-07-03 11:54] LABS: ALBUMIN 3.8 G/DL (3.2-5.2); BILIRUBIN,TOTAL 1.3 MG/DL (0.3-1.2); CALCIUM LEVEL 8.4 MG/DL (8.3-10.6); CHOLESTEROL RISK RATIO 3.07 (<5); CREATININE FOR GFR 1.63 MG/DL (0.70-1.30); GLOMERULAR FILTRATION RATE 44.4 (>42); HDL CHOLESTEROL 36.4 MG/DL (>40); LDL CHOLESTEROL 50.2 MG/DL (<100); NON-HDL-C 75.6 MG/DL; POTASSIUM SERUM 3.9 MMOL/L (3.5-5.1)
[2022-07-03 12:09] LABS: HEMOGLOBIN A1c 7.4 % (4.0-6.0)
[2022-07-03 12:13] LABS: CREATININE, URINE 39.8 MG/DL; MAU/CREAT RATIO 32.6 MCG/MG (0.0-30.0)
== END ==
LOC: M PLALAB 07:06
PROVIDERS: ATTEND Nurse Practitioner Family
DX: I10 Essential (primary) hypertension (principal); E11.9 Type 2 diabetes mellitus without complications
CPT/HCPCS: 36415; 80053; 80061; 82043; 83036; 85025; G0103

== ENCOUNTER → 2022-11-26 | Outpatient (CLI) | payer OTHER ==
[~2022-11-26] MED LIST changes: +ATOR40TA75 PO; -CARV25TA; +CARV25TA PO; -EZET10TA21; +EZET10TA21 PO; +GLIP2.5T6 PO; +JARD1TAB3 PO; +SITA50TAB PO; -TORS20TA2; +TORS20TA2 PO; -TRUL0.5I; +TRUL0.5I SQ; -VITA100093; +VITA100093 PO
== END ==
LOC: M ONCR 13:57
PROVIDERS: ATTEND Radiology Radiation Oncology
DX: C34.11 Malignant neoplasm of upper lobe, right bronchus or lung (principal); Z92.3 Personal history of irradiation; Z91.041 Radiographic dye allergy status; Z80.0 Family history of malignant neoplasm of digestive organs; Z80.42 Family history of malignant neoplasm of prostate; Z88.1 Allergy status to other antibiotic agents; Z79.84 Long term (current) use of oral hypoglycemic drugs; Z79.01 Long term (current) use of anticoagulants; Z79.85 Long-term (current) use of injectable non-insulin antidiabetic drugs; Z79.82 Long term (current) use of aspirin; Z79.899 Other long term (current) drug therapy

== ENCOUNTER 2022-12-25 13:47 | Outpatient (RCR) | payer OTHER ==
[2023-01-12] MEDS ORDERED: ONDA-84 PO (14:03)
[2023-01-12] MEDS ORDERED: PROC10TA5 PO (14:03)
[2023-01-12] MEDS ORDERED: LIDO30CR18 TOP (14:03)
== END 2023-01-08 ==
LOC: M ONCR 13:47
PROVIDERS: ATTEND General Practice
DX: Z51.0 Encounter for antineoplastic radiation therapy (principal); C34.11 Malignant neoplasm of upper lobe, right bronchus or lung

== ENCOUNTER → 2023-01-07 | Outpatient (CLI) | payer MEDICARE, OTHER ==
[~2023-01-07] MED LIST changes: +LIDOCAINE W/EPINEPHRINE 1% 20ML VIAL As Ordered ONE; +MIDAZOLAM INJ 2MG/2ML VIAL As Ordered ONE; +NS 1,000 ML IV SCH; +ceFAZolin 2 GM/D5W 50 ML IV BAG As Ordered ONE; +ceFAZolin SOD 2 GM in IV 1 EA IV ONE; +fentaNYL 100 MCG/2 ML INJECTION As Ordered ONE; +hydrALAZINE 20MG/ML 1ML VIAL As Ordered ONE
[2023-01-07 07:58] VITALS: TEMP 98
[2023-01-07 11:15] VITALS: BP 178/68; O2SAT 95
== END ==
LOC: M IRPRO 07:41
PROVIDERS: ATTEND Specialist
DX: C34.90 Malignant neoplasm of unspecified part of unspecified bronchus or lung (principal)
CPT/HCPCS: 36561; 99152; 99153; J0360; J0690; J2250; J3010

== ENCOUNTER → 2023-01-13 | Outpatient (CLI) | payer OTHER ==
[~2023-01-13] MED LIST changes: +LIDO30CR18 TOP; -LIDOCAINE W/EPINEPHRINE 1% 20ML VIAL As Ordered ONE; -MIDAZOLAM INJ 2MG/2ML VIAL As Ordered ONE; -NS 1,000 ML IV SCH; +ONDA-84 PO; +PROC10TA5 PO; -ceFAZolin 2 GM/D5W 50 ML IV BAG As Ordered ONE; -ceFAZolin SOD 2 GM in IV 1 EA IV ONE; -fentaNYL 100 MCG/2 ML INJECTION As Ordered ONE; -hydrALAZINE 20MG/ML 1ML VIAL As Ordered ONE
[2023-01-13 13:09] LABS: BASO # 0.1 10^3/uL (0.0-0.2); BASO % 0.8 % (0.0-1.0); EOS # 0.4 10^3/uL (0.0-0.5); EOS % 5.8 % (0.0-3.0); HEMATOCRIT 46.6 % (42.0-52.0); HEMOGLOBIN 14.3 g/dl (13.5-17.5); LYMPH # 1.2 10^3/uL (1.5-5.0); LYMPH % 15.8 % (24.0-44.0); MEAN CORPUSCULAR HEMOGLOBIN 27.8 pg (27.0-33.0); MEAN CORPUSCULAR HGB CONC 30.7 g/dl (32.0-36.5); MEAN CORPUSCULAR VOLUME 90.5 fl (80.0-96.0); MONO # 0.7 10^3/uL (0.0-0.8); MONO % 8.8 % (2.0-8.0); NEUTROPHILS # 5.2 10^3/uL (1.5-8.5); NEUTROPHILS % 68.5 % (36.0-66.0); PLATELET COUNT, AUTOMATED 165 10^3/uL (150-450); RED BLOOD COUNT 5.15 10^6/uL (4.30-6.10); WHITE BLOOD COUNT 7.5 10^3/uL (4.0-10.0)
[2023-01-13 13:27] LABS: HEMOGLOBIN A1c 6.9 % (4.0-6.0)
[2023-01-13 13:37] LABS: URIC ACID 5.9 MG/DL (3.7-9.2)
[2023-01-13 13:41] LABS: CREATININE, URINE 44.5 MG/DL; MAU/CREAT RATIO 51.6 MCG/MG (0.0-30.0)
[2023-01-13 13:56] LABS: ALBUMIN 3.5 G/DL (3.2-5.2); BILIRUBIN,TOTAL 0.8 MG/DL (0.3-1.2); CALCIUM LEVEL 8.8 MG/DL (8.3-10.6); CHOLESTEROL RISK RATIO 3.45 (<5); CREATININE FOR GFR 1.71 MG/DL (0.70-1.30); HDL CHOLESTEROL 35.3 MG/DL (>40); LDL CHOLESTEROL 64.3 MG/DL (<100); NON-HDL-C 86.7 MG/DL; POTASSIUM SERUM 4.2 MMOL/L (3.5-5.1); TOTAL PROTEIN 7.1 G/DL (5.7-8.2)
== END ==
LOC: M PLALAB 06:57
PROVIDERS: ATTEND Physician Assistant
DX: E11.22 Type 2 diabetes mellitus with diabetic chronic kidney disease (principal); I12.9 Hypertensive chronic kidney disease with stage 1 through stage 4 chronic kidney disease, or unspecified chronic kidney disease; I25.10 Atherosclerotic heart disease of native coronary artery without angina pectoris
CPT/HCPCS: 36415; 80053; 80061; 82043; 83036; 83880; 84550; 85025; G0103

== ENCOUNTER 2023-02-06 11:22 | Outpatient (RCR) | payer OTHER ==
[~2023-02-06 11:22] MED LIST changes: +TRAZ-186 PO
== END 2023-02-08 ==
LOC: M ONCR 11:22
PROVIDERS: ATTEND General Practice
DX: Z51.0 Encounter for antineoplastic radiation therapy (principal); C34.11 Malignant neoplasm of upper lobe, right bronchus or lung

== ENCOUNTER 2023-02-27 11:15 | Outpatient (RCR) | payer OTHER ==
[2023-03-03] MEDS ORDERED: PRED50TA PO (08:24)
[2023-03-16] MEDS ORDERED: CLOP75TA2 PO (07:50)
[2023-03-16] MEDS ORDERED: TRAZ-252 PO (07:50)
[2023-03-16] MEDS ORDERED: ASPI-226 PO (07:50)
[2023-03-16] MEDS ORDERED: VITA100093 PO (07:57)
== END 2023-03-11 ==
LOC: M ONCR 11:15
PROVIDERS: ATTEND General Practice
DX: Z51.0 Encounter for antineoplastic radiation therapy (principal); C34.11 Malignant neoplasm of upper lobe, right bronchus or lung

== ENCOUNTER → 2023-03-16 | Outpatient (CLI) | payer OTHER ==
[~2023-03-16] MED LIST changes: +ASPI-226 PO; +CLOP75TA2 PO; +ISOVUE-370 76% 100ML VIAL As Ordered ONE; +PRED50TA PO; +PROHANCE 279.3MG/ML 15ML VIAL As Ordered ONE; +TRAZ-252 PO
== END ==
LOC: M RAD 08:49
PROVIDERS: ATTEND General Practice
DX: C34.90 Malignant neoplasm of unspecified part of unspecified bronchus or lung (principal)

== ENCOUNTER → 2023-03-16 | Outpatient (CLI) | payer OTHER ==
[~2023-03-16] MED LIST changes: -ISOVUE-370 76% 100ML VIAL As Ordered ONE; -PROHANCE 279.3MG/ML 15ML VIAL As Ordered ONE
== END ==
LOC: M RAD 08:44
PROVIDERS: ATTEND Nurse Practitioner
DX: C34.90 Malignant neoplasm of unspecified part of unspecified bronchus or lung (principal)

== ENCOUNTER → 2023-04-20 | Outpatient (REF) | payer OTHER ==
[2023-04-20 14:02] LABS: HEMOGLOBIN A1c 8.4 % (4.0-6.0)
== END ==
LOC: M LAB REF 13:11
PROVIDERS: ATTEND Physician Assistant
DX: E11.22 Type 2 diabetes mellitus with diabetic chronic kidney disease (principal)

== ENCOUNTER → 2023-05-04 | Outpatient (CLI) | payer OTHER | LOC: M PLAIMG 13:39 | PROVIDERS: ATTEND Physician Assistant | DX: M25.551 Pain in right hip (principal); M16.11 Unilateral primary osteoarthritis, right hip ==

== ENCOUNTER → 2023-06-15 | Outpatient (CLI) | payer OTHER | LOC: M RAD 10:38 | PROVIDERS: ATTEND Physician Assistant | DX: I65.23 Occlusion and stenosis of bilateral carotid arteries (principal) ==

== ENCOUNTER → 2023-07-14 | Outpatient (CLI) | payer OTHER ==
[~2023-07-14] MED LIST changes: +BENA25CA4 PO; +DEXA4TA PO; +FOLI1TAB11 PO; +HYDR-3713; +ISOVUE-370 76% 100ML VIAL As Ordered ONE
== END ==
LOC: M RAD 07-02 09:05
PROVIDERS: ATTEND Nurse Practitioner
DX: C34.90 Malignant neoplasm of unspecified part of unspecified bronchus or lung (principal)
CPT/HCPCS: 71260; Q9967

== ENCOUNTER → 2023-07-20 | Outpatient (REF) | payer OTHER ==
[~2023-07-20] MED LIST changes: -ISOVUE-370 76% 100ML VIAL As Ordered ONE
[2023-07-20 14:18] LABS: HEMOGLOBIN A1c 7.7 % (4.0-6.0)
== END ==
LOC: M LAB REF 13:24
PROVIDERS: ATTEND Physician Assistant
DX: E11.22 Type 2 diabetes mellitus with diabetic chronic kidney disease (principal)

== ENCOUNTER → 2023-08-10 | Outpatient (CLI) | payer OTHER ==
[2023-08-10 16:33] LABS: BASO # 0.1 10^3/uL (0.0-0.2); BASO % 0.7 % (0.0-1.0); EOS # 0.5 10^3/uL (0.0-0.5); EOS % 6.1 % (0.0-3.0); HEMATOCRIT 40.8 % (42.0-52.0); LYMPH # 0.6 10^3/uL (1.5-5.0); LYMPH % 6.7 % (24.0-44.0); MEAN CORPUSCULAR HGB CONC 29.4 g/dl (32.0-36.5); MEAN CORPUSCULAR VOLUME 91.9 fl (80.0-96.0); MONO # 1.2 10^3/uL (0.0-0.8); MONO % 13.7 % (2.0-8.0); NEUTROPHILS # 6.1 10^3/uL (1.5-8.5); NEUTROPHILS % 72.4 % (36.0-66.0); PLATELET COUNT, AUTOMATED 271 10^3/uL (150-450); RED BLOOD COUNT 4.44 10^6/uL (4.30-6.10); WHITE BLOOD COUNT 8.4 10^3/uL (4.0-10.0)
[2023-08-10 16:52] LABS: ALBUMIN 3.7 G/DL (3.2-5.2); BILIRUBIN,TOTAL 0.7 MG/DL (0.3-1.2); CALCIUM LEVEL 8.9 MG/DL (8.3-10.6); CREATININE FOR GFR 1.54 MG/DL (0.70-1.30); GLOMERULAR FILTRATION RATE 47.2 (>42); POTASSIUM SERUM 4.3 MMOL/L (3.5-5.1); TOTAL PROTEIN 7.2 G/DL (5.7-8.2)
== END ==
LOC: M PLAIMG 12:35
PROVIDERS: ATTEND Physician Assistant
DX: R06.00 Dyspnea, unspecified (principal); J98.4 Other disorders of lung

== ENCOUNTER → 2023-08-12 | Outpatient (CLI) | payer OTHER | LOC: M RAD 12:06 | PROVIDERS: ATTEND Orthopaedic Surgery | DX: M54.50 Low back pain, unspecified (principal) ==

== ENCOUNTER → 2023-09-01 | Outpatient (CLI) | payer OTHER ==
[~2023-09-01] MED LIST changes: +GABA-1171 PO; +MORP15TA2 PO; +SENN-186 PO; +VENTAER INH; +VITATAB26 PO
== END ==
LOC: M ONCR 13:03
PROVIDERS: ATTEND General Practice
DX: C34.11 Malignant neoplasm of upper lobe, right bronchus or lung (principal); C79.51 Secondary malignant neoplasm of bone; Z87.891 Personal history of nicotine dependence; Z92.21 Personal history of antineoplastic chemotherapy; Z92.3 Personal history of irradiation; Z88.1 Allergy status to other antibiotic agents; Z88.8 Allergy status to other drugs, medicaments and biological substances; Z91.041 Radiographic dye allergy status; Z79.52 Long term (current) use of systemic steroids; Z79.82 Long term (current) use of aspirin; Z79.84 Long term (current) use of oral hypoglycemic drugs; Z79.85 Long-term (current) use of injectable non-insulin antidiabetic drugs; Z79.899 Other long term (current) drug therapy

== ENCOUNTER 2023-09-04 11:44 | Outpatient (RCR) | payer OTHER ==
[~2023-09-04 11:44] MED LIST changes: -GABA-1171 PO; -MORP15TA2 PO; -SENN-186 PO; -VENTAER INH
[2023-09-04] MEDS ORDERED: ONDA-84 PO (12:05)
[2023-09-04] MEDS ORDERED: MORP15TA2 PO (12:05)
[2023-09-04] MEDS ORDERED: PROC10TA5 PO (12:05)
[2023-09-04] MEDS ORDERED: GABA-1171 PO (12:05)
[2023-09-04] MEDS ORDERED: SENN-186 PO (12:05)
[2023-09-04] MEDS ORDERED: VENTAER INH (12:41)
== END 2023-09-09 ==
LOC: M ONCR 11:44
PROVIDERS: ATTEND General Practice
DX: Z51.0 Encounter for antineoplastic radiation therapy (principal); C34.11 Malignant neoplasm of upper lobe, right bronchus or lung; C79.51 Secondary malignant neoplasm of bone; G89.3 Neoplasm related pain (acute) (chronic); M25.552 Pain in left hip; R06.01 Orthopnea; F32.A Depression, unspecified; K59.00 Constipation, unspecified; Z51.5 Encounter for palliative care; Z79.82 Long term (current) use of aspirin; Z79.84 Long term (current) use of oral hypoglycemic drugs; Z79.899 Other long term (current) drug therapy; Z79.02 Long term (current) use of antithrombotics/antiplatelets; Z80.42 Family history of malignant neoplasm of prostate; Z80.51 Family history of malignant neoplasm of kidney; Z87.891 Personal history of nicotine dependence; Z92.21 Personal history of antineoplastic chemotherapy

== ENCOUNTER → 2023-09-04 | Outpatient (CLI) | payer OTHER ==
[~2023-09-04] VITALS: Ht 175.3 cm; Wt 74.8 kg
[2023-09-04 10:19] VITALS: BP 102/57; O2SAT 95
== END ==
LOC: M PAL 09:56
PROVIDERS: ATTEND Nurse Practitioner Adult Health
DX: C34.11 Malignant neoplasm of upper lobe, right bronchus or lung (principal); C79.51 Secondary malignant neoplasm of bone; G89.3 Neoplasm related pain (acute) (chronic); M25.552 Pain in left hip; R06.01 Orthopnea; F32.A Depression, unspecified; K59.00 Constipation, unspecified; Z51.5 Encounter for palliative care; Z79.82 Long term (current) use of aspirin; Z79.84 Long term (current) use of oral hypoglycemic drugs; Z79.899 Other long term (current) drug therapy; Z79.02 Long term (current) use of antithrombotics/antiplatelets; Z80.42 Family history of malignant neoplasm of prostate; Z80.51 Family history of malignant neoplasm of kidney; Z87.891 Personal history of nicotine dependence; Z92.21 Personal history of antineoplastic chemotherapy; Z92.3 Personal history of irradiation

== ENCOUNTER → 2023-09-05 | Outpatient (CLI) | payer OTHER ==
[~2023-09-05] MED LIST changes: +GABA-1171 PO; +MORP15TA2 PO; +SENN-186 PO; +VENTAER INH
== END ==
LOC: M RAD 10:04
PROVIDERS: ATTEND Orthopaedic Surgery
DX: M79.651 Pain in right thigh (principal); M89.8X5 Other specified disorders of bone, thigh; C34.90 Malignant neoplasm of unspecified part of unspecified bronchus or lung

== ENCOUNTER → 2023-09-07 | Outpatient (CLI) | payer OTHER | LOC: M PLARAD 10:21 | PROVIDERS: ATTEND Specialist | DX: C34.11 Malignant neoplasm of upper lobe, right bronchus or lung (principal) | CPT/HCPCS: 78815; A9552 ==